=== PATIENT | male | born 1945 | race Caucasian/White ===

== ENCOUNTER 2016-12-15 21:25 | Inpatient (IN) | payer MEDICARE ==
[~2016-12-15] VITALS: Ht 167.6 cm; Wt 97.7 kg
[2016-12-15 21:27] VITALS: BP 121/73; PULSE 174; RESP 20; TEMP 98.3; O2SAT 94
[2016-12-15] MEDS ORDERED: METO10TA PO (21:35)
[2016-12-15 21:40] VITALS: BP 135/74; PULSE 88; PULSE 89; RESP 16; TEMP 98.4; O2SAT 97
[2016-12-15] MEDS ORDERED: ALPH400C2 (21:42)
[2016-12-15] MEDS ORDERED: FEXO15TA PO (21:42)
[2016-12-15] MEDS ORDERED: MELA10TA (21:42)
[2016-12-15] MEDS ORDERED: ASPI81CH CHEW (21:42)
[2016-12-15] MEDS ORDERED: GLIP10TA67 PO (21:42)
[2016-12-15] MEDS ORDERED: LANTINJ SQ (21:42)
[2016-12-15] MEDS ORDERED: MULT1CHW70 PO (21:42)
[2016-12-15] MEDS ORDERED: [UNRECOGNIZED DRUG - CODE] (21:42)
[2016-12-15] MEDS ORDERED: VITA10007 PO (21:42)
[2016-12-15] MEDS ORDERED: CALC600T25 (21:42)
[2016-12-15] MEDS ORDERED: LYRI150C PO (21:42)
[2016-12-15] MEDS ORDERED: NEXI40CA PO (21:42)
[2016-12-15] MEDS ORDERED: VITA100064 PO (21:42)
[2016-12-15] MEDS ORDERED: ATOR40TA16 PO (21:42)
[2016-12-15] MEDS ORDERED: LISI30TA4 PO (21:42)
[2016-12-15] MEDS ORDERED: SERT-132 PO (21:42)
[2016-12-15] MEDS ORDERED: METF1000 PO (21:42)
[2016-12-15] MEDS ORDERED: SODIUM CHLORIDE 0.9% FLUSH 5 ML FLUSH IVF PRN (22:00)
[2016-12-15] MEDS ORDERED: ASPIRIN 81 MG CHEW TAB PO ONE (22:00)
[2016-12-15 22:31] LABS: AUTOMATED NEUTROPHIL # 6.9 TH/MM3 (1.8-7.7); BASOPHIL # 0.1 TH/MM3 (0-0.2); BASOPHIL % 0.6 % (0.0-2.0); EOSINOPHIL # 0.1 TH/MM3 (0-0.4); EOSINOPHIL % 1.1 % (0.0-4.0); HEMATOCRIT 39.6 % (39.0-51.0); HEMO FLAGS DIFF FINAL; LYMPH % 27.4 % (9.0-44.0); MEAN CELL VOLUME 89.9 FL (80.0-100.0); MEAN CORPUSCULAR HEMOGLOBIN 29.5 PG (27.0-34.0); MEAN CORPUSCULAR HGB CONC 32.8 % (32.0-36.0); MONO % 8.6 % (0.0-8.0); NEUT % 62.3 % (16.0-70.0); PLATELET COUNT 251 TH/MM3 (150-450); RED BLOOD COUNT 4.41 MIL/MM3 (4.50-5.90); RED CELL DISTRIBUTION WIDTH 15.1 % (11.6-17.2); WHITE BLOOD COUNT 11.1 TH/MM3 (4.0-11.0)
[2016-12-15 22:47] LABS: APTT (PATIENT) 26.2 SEC (24.3-30.1); PROTHROMBIN TIME - PATIENT 11.2 SEC (9.8-11.6)
--- NOTE | 2016-12-15 22:57 | RADRPT ---
EXAM DATE/TIME: 12/15/2016 22:21 [place] COMPARISON: No previous studies available for comparison. INDICATIONS : Chest Pain MEDICAL HISTORY : Hypertension. High heart rate SURGICAL HISTORY : None. ENCOUNTER: Initial ACUITY: 1 day PAIN SCORE: 3/10 LOCATION: Bilateral chest FINDINGS: PA and lateral views of the chest demonstrate the lungs to be symmetrically aerated without evidence of mass, infiltrate or effusion. Minimal basal scarring. The cardiomediastinal contours are unremarka ble. Osseous structures are intact. CONCLUSION: 1. No acute findings. Minimal basal scarring. Ranulfo Acevedo MD on December 15, 2016 at 22:55 Board Certified Radiologist. This report was verified electronically.
[2016-12-15 23:15] LABS: ALKALINE PHOSPHATASE 57 U/L (45-117); ALT (GPT) 64 U/L (12-78); ANION GAP 12 MEQ/L (5-15); AST (GOT) 42 U/L (15-37); BICARBONATE 23.7 MEQ/L (21.0-32.0); BLOOD UREA NITROGEN 20 MG/DL (7-18); CHLORIDE 102 MEQ/L (98-107); CREATINE KINASE 226 U/L (39-308); GLOMERULAR FILTRATION RATE 54 ML/MIN (>89); MAGNESIUM 1.3 MG/DL (1.5-2.5); SODIUM (NA) 138 MEQ/L (136-145); TOTAL BILIRUBIN ADULT 0.3 MG/DL (0.2-1.0)
[2016-12-15 23:49] LABS: POTASSIUM 4.1 MEQ/L (3.5-5.1)
[2016-12-16] VITALS (11 sets, daily range): BP systolic 114–137; BP diastolic 59–85; PULSE 65–87; RESP 14–25; TEMP 98.2–98.6; O2SAT 93–99
--- NOTE | 2016-12-16 00:05 | PD ---
HPI Chief Complaint: Cardiac Complaint Time Seen by Provider: 21:40 Travel History International Travel<30 days: No Contact w/Intl Traveler<30days: No Traveled to known affect area: No History of Present Illness HPI Patient is a 71-year-old male who comes in complaining of chest pain that started around 8 PM tonight. He says they just got home from dinner and he was sitting down when he felt severe pain to the left side of his chest. He said he did have some shortness of breath at the time of the pain. He took one of his 's nitroglycerin tablets with some relief of his pain. He denies nausea or vomiting. He has not had cough, cold, fevers. He says this is never happened before. PFSH Past Medical History Hx Anticoagulant Therapy: Yes Cardiovascular Problems: Yes High Cholesterol: Yes Diabetes: Yes Patient Takes Glucophage: Yes Hypertension: Yes Inguinal Hernia: Yes Immunizations Current: Yes Past Surgical History Abdominal Surgery: Yes Other Surgery: Yes (HERNIA [facility]) Social History Alcohol Use: No Tobacco Use: No Substance Use: No Allergies-Medications (Allergen,Severity, Reaction): Coded Allergies: No Known Allergies (Unverified , 12/15/16) Reported Meds & Prescriptions Reported Meds & Active Scripts Active Reported Melissa Allergy (Fexofenadine HCl) 180 Mg Tab 180 Mg PO DAILY Calcium (Calcium Carbonate) 600 Mg Tab Glipizide XL (Glipizide) 10 Mg Carline 10 Mg PO DAILY Take with breakfast or first main meal of the day Melatonin Cr (Melatonin) 10 Mg Tab Alph-E (Vitamin E) 400 Unit Cap Vitamin D (Cholecalciferol) 1,000 Unit Tab 1,000 Units PO DAILY Vitamin C (Ascorbic Acid) 1,000 Mg Tab 1,000 Mg PO Multivitamin Adult (Multiple Vitamins W/ Minerals) 1 Chw Chw 1 Tab PO DAILY Aspirin 81 Mg Chew 81 Mg CHEW DAILY Lantus Solostar Pen Inj (Insulin Glargine) 300 Unit/3 Ml Pen 140 Units SQ Atorvastatin (Atorvastatin Calcium) 40 Mg Tab 40 Mg PO HS Lyrica (Pregabalin) 150 Mg Cap 150 Mg PO BID Sertraline (Sertraline HCl) 50 Mg Tab 50 Mg PO DAILY Metformin (Metformin HCl) 1,000 Mg Tab 1,000 Mg PO BIDPC With meals Lisinopril 30 Mg Tab 30 Mg PO DAILY Nexium (Esomeprazole DR) 40 Mg Capdr 40 Mg PO BID Metoclopramide (Metoclopramide HCl) 10 Mg Tab 10 Mg PO TIDAC Review of Systems Except as stated in HPI: all other systems reviewed are Neg General / Constitutional: No: Fever, Chills Eyes: No: Blurred Vision HENT: No: Headaches, Lightheadedness Cardiovascular: Positive: Chest Pain or Discomfort Respiratory: Positive: Shortness of Breath Gastrointestinal: No: Nausea, Vomiting Musculoskeletal: No: Myalgias, Edema Skin: No Rash, No Change in Pigmentation Neurologic: No: Weakness, Dizziness Physical Exam Narrative GENERAL: Awake and alert in no acute distress. SKIN: Warm and dry. HEAD: Atraumatic. Normocephalic. EYES: Pupils equal and round. No scleral icterus. ENT: Mucous membranes pink and moist. NECK: Trachea midline. No JVD. CARDIOVASCULAR: Regular rate and rhythm. No murmur appreciated. RESPIRATORY: No accessory muscle use. Clear to auscultation. Breath sounds equal bilaterally. GASTROINTESTINAL: Abdomen soft, non-tender, nondistended. MUSCULOSKELETAL: No obvious deformities. No clubbing. No cyanosis. No edema. NEUROLOGICAL: Awake and alert. No obvious cranial nerve deficits. Motor grossly within normal limits. Normal speech. PSYCHIATRIC: Appropriate mood and affect; insight and judgment normal. Data Data Last Documented VS Vital Signs Date Time Temp Pulse Resp B/P Pulse Ox O2 Delivery O2 Flow Rate FiO2 12/15/16 21:47 14 97 Nasal Cannula 2 12/15/16 21:40 88 12/15/16 21:40 98.4 135/74 Orders B-Type Natriuretic Peptide (12/15/16 21:57) Ckmb (Isoenzyme) Profile (12/15/16 21:57) Complete Blood Count With Diff (12/15/16 21:57) Comprehensive Metabolic Panel (12/15/16 21:57) Magnesium (Mg) (12/15/16 21:57) Prothrombin Time / Inr (Pt) (12/15/16 21:57) Act Partial Throm Time (Ptt) (12/15/16 21:57) Troponin I (12/15/16 21:57) Ecg Monitoring (12/15/16 21:57) Bilateral Bp Monitoring (12/15/16 21:57) Iv Access Insert/Monitor (12/15/16 21:57) Oximetry (12/15/16 21:57) Oxygen Administration (12/15/16 21:57) Aspirin Chew (Aspirin Chew) (12/15/16 22:00) Sodium Chloride 0.9% Flush (Ns Flush) (12/15/16 22:00) Chest, Pa & Lat (12/15/16 21:57) CKMB (12/15/16 22:10) CKMB% (12/15/16 22:10) Heparin Infusion ARIES.Q1H (12/16/16 00:04) Heparin Inj (Heparin Inj) (12/16/16 00:15) Heparin Inj (Heparin Inj) (12/16/16 06:15) Heparin Inj (Heparin Inj) (12/16/16 06:15) Heparin-D5w Inj (Heparin-D5w Inj) (12/16/16 00:15) Cbc No Diff, Includes Plts (12/19/16 06:00) Act Partial Throm Time (Ptt) (12/16/16 07:04) Occult Blood (Hemoccult) Stool (12/16/16 00:04) Admit Order (Ed Use Only) (12/16/16 ) Consult Cardiology (12/16/16 ) Labs Laboratory Tests Test 12/15/16 22:10 White Blood Count 11.1 TH/MM3 Red Blood Count 4.41 MIL/MM3 Hemoglobin 13.0 GM/DL Hematocrit 39.6 % Mean Corpuscular Volume 89.9 FL Mean Corpuscular Hemoglobin 29.5 PG Mean Corpuscular Hemoglobin 32.8 % Concent Red Cell Distribution Width 15.1 % Platelet Count 251 TH/MM3 Mean Platelet Volume 7.9 FL Neutrophils (%) (Auto) 62.3 % Lymphocytes (%) (Auto) 27.4 % Monocytes (%) (Auto) 8.6 % Eosinophils (%) (Auto) 1.1 % Basophils (%) (Auto) 0.6 % Neutrophils # (Auto) 6.9 TH/MM3 Lymphocytes # (Auto) 3.0 TH/MM3 Monocytes # (Auto) 1.0 TH/MM3 Eosinophils # (Auto) 0.1 TH/MM3 Basophils # (Auto) 0.1 TH/MM3 CBC Comment DIFF FINAL Differential Comment Prothrombin Time 11.2 SEC Prothromb Time International 1.0 RATIO Ratio Activated Partial 26.2 SEC Thromboplast Time B-Type Natriuretic Peptide 12 PG/ML Sodium Level 138 MEQ/L Potassium Level 4.1 MEQ/L Chloride Level 102 MEQ/L Carbon Dioxide Level 23.7 MEQ/L Anion Gap 12 MEQ/L Blood Urea Nitrogen 20 MG/DL Creatinine 1.32 MG/DL Estimat Glomerular Filtration 54 ML/MIN Rate Random Glucose 133 MG/DL Calcium Level 8.9 MG/DL Magnesium Level 1.3 MG/DL Total Bilirubin 0.3 MG/DL Aspartate Amino Transf 42 U/L (AST/SGOT) Alanine Aminotransferase 64 U/L (ALT/SGPT) Alkaline Phosphatase 57 U/L Total Creatine Kinase 226 U/L Creatine Kinase MB 4.9 NG/ML Troponin I 0.13 NG/ML Total Protein 7.8 GM/DL Albumin 3.9 GM/DL [facility] Medical Decision Making Medical Screen Exam Complete: Yes Emergency Medical Condition: Yes Interpretation(s) ECG shows sinus rhythm with 1 mm depression in leads 2 and 3. There is no ST elevation. Differential Diagnosis ACS versus NSTEMI versus STEMI Narrative Course Patient is a 71-year-old male comes in complaining of left-sided chest pain. Exam shows no acute abnormalities. IV established, patient connected to the hand rigger. Labs sent. Patient given aspirin. Labs show a positive troponin at 0.13. Patient started on heparin. I spoke with Dr. Nazario of cardiology who will see the patient. Patient admitted for further management. Diagnosis Primary Impression: NSTEMI (non-ST elevated myocardial infarction) Admitting Information Admitting Physician Requests: Admit Sharon Villeda MD Dec 16, 2016 00:05
[2016-12-16] MEDS ORDERED: HEPARIN SODIUM - IV 10,000 UNITS/10 ML VIAL IV ONE (00:15)
[2016-12-16 00:29] LABS: CKMB 4.9 NG/ML (0.5-3.6)
[2016-12-16] MEDS ORDERED: GLUCAGON 1 MG/ML VIAL OTHER PRN (01:15)
[2016-12-16] MEDS ORDERED: SODIUM CHLORIDE 0.9% FLUSH 5 ML FLUSH FLUSH PRN (01:15)
[2016-12-16] MEDS ORDERED: ACETAMINOPHEN 325 MG TAB PO PRN (01:15)
[2016-12-16] MEDS ORDERED: ONDANSETRON HCL 4 MG/2 ML VIAL IVP PRN (01:15)
[2016-12-16] MEDS ORDERED: MORPHINE SULFATE 4 MG/ML INJ IV PRN (01:15)
[2016-12-16] MEDS ORDERED: SODIUM CHLOR 0.9% 1000 ML INJ 1,000 ML IV ONE (01:15)
[2016-12-16] MEDS ORDERED: BISACODYL 10 MG SUPP PR PRN (01:15)
[2016-12-16] MEDS ORDERED: DEXTROSE 50% IN WATER 50 ML VIAL(D50) IV PUSH PRN (01:15)
[2016-12-16] MEDS ORDERED: PILL SPLITTER OTHER PRN (01:30)
[2016-12-16] MEDS: HEPARIN-D5W INJ 250 ML IV SCH ×2 (01:43→20:28)
[2016-12-16] MEDS ORDERED: MAGNESIUM SULFATE 1 GM PREMIX 100 ML IV ONE (01:45)
--- NOTE | 2016-12-16 02:00 | HHI.HP ---
HPI [facility] Primary Care Physician Non-Staff Admission Diagnosis NSTEMI Diagnoses: (1) NSTEMI (non-ST elevated myocardial infarction) Diagnosis: Principal (2) Renal insufficiency Diagnosis: Principal (3) Hypomagnesemia Diagnosis: Principal (4) Leukocytosis Diagnosis: Principal (5) HTN (hypertension) Diagnosis: Principal (6) DM (diabetes mellitus) Diagnosis: Principal Travel History International Travel<30 Days: No Contact w/Intl Traveler <30 Da: No Traveled to Known Affected Are: No History of Present Illness This is a 71-year-old male with a PMH of HTN, DM and Hyperlipidemia who presented to the ER w/ complaints of acute onset of substernal chest pain starting earlier this evening. Associated w/ SOB and radiation to jaw. States he uses 's NTG spray x3 w/ relief in chest pain. Denies fever or chills. On arrival, BP 121/73, HR 74, O2 sat 94% on RA, Afebrile. WBC 11.1. Creatinine 1.32, no previous labs for comparison. Mg 1.3. Trop 0.13, EKG w/ no acute changes. CXR with no acute findings. Pt currently chest pain free. Dr. Nazario consulted by ER physician, recommended Heparin gtt and will see in am. Review of Systems Except as stated in HPI: all other systems reviewed are Neg ROS: 14 point review of systems otherwise negative. Past Family Social History Past Medical History PMH: HTN, DM and Hyperlipidemia Past Surgical History PAST SURGICAL HISTORY: Hernia Repair, Bilateral Knee Replacement Allergies: Coded Allergies: No Known Allergies (Unverified , 12/15/16) Family History PAST FAMILY HISTORY: Reviewed, positive for DM. Social History PAST SOCIAL HISTORY: Negative for alcohol, tobacco or drugs. Physical Exam Vital Signs Vital Signs Date Time Temp Pulse Resp B/P Pulse Ox O2 Delivery O2 Flow Rate FiO2 12/15/16 21:47 14 97 Nasal Cannula 2 12/15/16 21:40 88 16 97 Nasal Cannula 2 12/15/16 21:40 97 Nasal Cannula 2 12/15/16 21:40 98.4 89 16 135/74 97 12/15/16 21:27 98.3 174 20 121/73 94 Room Air Physical Exam PE: GENERAL: Very pleasant middle-aged white male in no acute distress. HEENT: PERRLA, EOMI. No scleral icterus or conjunctival pallor. No lid lag or facial droop. CARDIOVASCULAR: Regular rate and rhythm. No obvious murmurs to auscultation. No chest tenderness to palpation. RESPIRATORY: No obvious rhonchi or wheezing. Clear to auscultation. Breath sounds equal bilaterally. GASTROINTESTINAL: Abdomen soft, non-tender, nondistended. BS normal. MUSCULOSKELETAL: Extremities without clubbing, cyanosis, or edema. No obvious deformities. NEUROLOGICAL: Awake, alert and oriented x4. No focal neurologic deficits. Moving both upper and lower extremities spontaneously. Laboratory Laboratory Tests Test 12/15/16 22:10 White Blood Count 11.1 Red Blood Count 4.41 Hemoglobin 13.0 Hematocrit 39.6 Mean Corpuscular Volume 89.9 Mean Corpuscular Hemoglobin 29.5 Mean Corpuscular Hemoglobin 32.8 Concent Red Cell Distribution Width 15.1 Platelet Count 251 Mean Platelet Volume 7.9 Neutrophils (%) (Auto) 62.3 Lymphocytes (%) (Auto) 27.4 Monocytes (%) (Auto) 8.6 Eosinophils (%) (Auto) 1.1 Basophils (%) (Auto) 0.6 Neutrophils # (Auto) 6.9 Lymphocytes # (Auto) 3.0 Monocytes # (Auto) 1.0 Eosinophils # (Auto) 0.1 Basophils # (Auto) 0.1 CBC Comment DIFF FINAL Differential Comment Prothrombin Time 11.2 Prothromb Time International 1.0 Ratio Activated Partial 26.2 Thromboplast Time B-Type Natriuretic Peptide 12 Sodium Level 138 Potassium Level 4.1 Chloride Level 102 Carbon Dioxide Level 23.7 Anion Gap 12 Blood Urea Nitrogen 20 Creatinine 1.32 Estimat Glomerular Filtration 54 Rate Random Glucose 133 Calcium Level 8.9 Magnesium Level 1.3 Total Bilirubin 0.3 Aspartate Amino Transf 42 (AST/SGOT) Alanine Aminotransferase 64 (ALT/SGPT) Alkaline Phosphatase 57 Total Creatine Kinase 226 Creatine Kinase MB 4.9 Troponin I 0.13 Total Protein 7.8 Albumin 3.9 Result Diagram: 12/15/16220912/15/162209 Assessment and Plan Problem List: (1) NSTEMI (non-ST elevated myocardial infarction) ICD Code: I21.4 Status: Acute (2) Renal insufficiency ICD Code: N28.9 Status: Acute (3) Hypomagnesemia ICD Code: E83.42 Status: Acute (4) Leukocytosis ICD Code: D72.829 Status: Acute (5) HTN (hypertension) ICD Code: I10 Status: Acute (6) DM (diabetes mellitus) ICD Code: E11.9 Status: Acute Assessment and Plan A/P: 1. NSTEMI: Acute onset of chest pain earlier tonight, s/p NTG spray x3 w/ relief. Initial trop 0.13, EKG w/ no acute changes. CXR negative, images reviewed by me. Dr. Nazario consulted by ER physician, recommended Heparin gtt and will eval in am. Continue Heparin, ASA, Metoprolol, Statin. Check serial enzymes, Lipid Profile, Hgb A1c, TSH. 2. Renal Insufficiency: Creatinine 1.32, no previous labs for comparison. BUN 20. Check U/a, IVF, repeat labs in am. Hold Lisinopril and Metformin. 3. Hypomagnesemia: Mg 1.3, will replace and recheck in am. 4. Leukocytosis: WBC 11, afebrile. Unlikely infectious etiology. CXR negative, check U/a to eval for possible UTI. Repeat labs in am. 5. HTN: Controlled. Hold Lisinopril in light of renal insufficiency. 6. DM: Sliding scale w/ Accu-Cheks. Check Hgb A1c. Hold Metformin for renal insufficiency and possible cardiac intervention. 7. DVT Prophylaxis: Heparin gtt 8. Social work for d/c planning as needed. 9. Case discussed w/ ER physician at length. Physician Certification 2 Midnight Certification Type: Admission for Inpatient Services Order for Inpatient Services The services are ordered in accordance with Medicare regulations or non- Medicare payer requirements, as applicable. In the case of services not specified as inpatient-only, they are appropriately provided as inpatient services in accordance with the 2-midnight benchmark. Estimated LOS (days): 2 days is the estimated time the patient will need to remain in the hospital, assuming treatment plan goals are met and no additional complications. Post-Hospital Plan: Not yet determined Arlyn Miller MD Dec 16, 2016 02:00
[2016-12-16 03:12] LABS: BLOOD, URINE NEG (NEG); COMMENT (UR) CULT NOT INDICATED; CULTURE IF INDICATED CULT NOT INDICATED; GLUCOSE,URINE NEG (NEG); KETONE, URINE NEG (NEG); MUCUS URINE FEW /lpf (OCC); NITRITE,URINE NEG (NEG); PH, URINE 5.5 (5.0-8.5); URINE COLOR YELLOW (YELLW/STRAW)
[2016-12-16 04:53] LABS: HDL CHOLESTEROL 41.9 MG/DL (40.0-60.0); LDL CHOLESTEROL 38 MG/DL (0-99)
[2016-12-16 06:09] LABS: APTT (PATIENT) 31.8 SEC (24.3-30.1)
[2016-12-16] MEDS ORDERED: HEPARIN SODIUM - IV 10,000 UNITS/10 ML VIAL IV PRN ×2 (06:15)
[2016-12-16] MEDS: INSULIN ASPART SUPPLEMENTAL SCALE SQ SCH ×4 (07:00→20:32)
[2016-12-16] MEDS: ASPIRIN 81 MG CHEW TAB CHEW SCH (08:26)
[2016-12-16] MEDS: MULTIVITAMINS/MINERALS THERAPEUTIC TAB PO SCH (08:26)
[2016-12-16] MEDS: SERTRALINE HCL 50 MG TAB PO SCH (08:27)
[2016-12-16] MEDS: PREGABALIN 75 MG CAP PO SCH ×2 (08:27→20:27)
[2016-12-16] MEDS: METOPROLOL TARTRATE 25 MG TAB PO SCH ×2 (08:27→20:27)
[2016-12-16] MEDS: SODIUM CHLORIDE 0.9% FLUSH 5 ML FLUSH FLUSH SCH ×2 (08:28→20:29)
[2016-12-16 09:06] LABS: HEMOGLOBIN A1a 1.1 %; HEMOGLOBIN A1b 1.2 %; HEMOGLOBIN F 1.2 %; HEMOGLOBIN LA1C 2.5 %; HEMOGLOBIN P3 4.4 %
[2016-12-16] MEDS ORDERED: CHLORHEXIDINE GLUCONATE 2 % 1 PACK (2 CLOTHS)(extra cloths) TOP PRN (09:30)
[2016-12-16 10:43] LABS: AUTOMATED NEUTROPHIL # 5.1 TH/MM3 (1.8-7.7); BASOPHIL % 0.4 % (0.0-2.0); EOSINOPHIL # 0.1 TH/MM3 (0-0.4); EOSINOPHIL % 1.5 % (0.0-4.0); HEMO FLAGS DIFF FINAL; LYMPH % 25.7 % (9.0-44.0); LYMPHOCYTE # 2.1 TH/MM3 (1.0-4.8); MEAN CELL VOLUME 88.6 FL (80.0-100.0); MEAN CORPUSCULAR HEMOGLOBIN 29.9 PG (27.0-34.0); MEAN CORPUSCULAR HGB CONC 33.8 % (32.0-36.0); MONO % 9.4 % (0.0-8.0); PLATELET COUNT 217 TH/MM3 (150-450); RED BLOOD COUNT 4.06 MIL/MM3 (4.50-5.90); RED CELL DISTRIBUTION WIDTH 14.9 % (11.6-17.2); WHITE BLOOD COUNT 8.2 TH/MM3 (4.0-11.0)
[2016-12-16 11:00] LABS: ALT (GPT) 59 U/L (12-78); ANION GAP 8 MEQ/L (5-15); AST (GOT) 58 U/L (15-37); BLOOD UREA NITROGEN 20 MG/DL (7-18); CHLORIDE 105 MEQ/L (98-107); GLOMERULAR FILTRATION RATE 66 ML/MIN (>89); MAGNESIUM 1.8 MG/DL (1.5-2.5); POTASSIUM 4.2 MEQ/L (3.5-5.1); SODIUM (NA) 137 MEQ/L (136-145)
[2016-12-16 11:04] LABS: ALKALINE PHOSPHATASE 49 U/L (45-117); TOTAL BILIRUBIN ADULT 0.3 MG/DL (0.2-1.0)
--- NOTE | 2016-12-16 11:05 | MB ---
cc: REGINO URIAS DATE OF CONSULTATION: 12/16/2016 DATE OF : 1945 REASON FOR CONSULTATION [id number] MT. HISTORY OF PRESENT ILLNESS 71-year-old male with cardiac risk factors that include hypertension, hyperlipidemia, diabetes and obesity who presents to the emergency department with complaints of jaw pain and chest pressure that started at 7 p.m. yesterday which was relieved by nitroglycerin. He reports being in his usual state of health until yesterday at 7 p.m. when he started having headache, chest pressure across his chest. He took his 's nitroglycerin with some relief of the pressure, however, it did not go away for which he presented to the emergency department. In the emergency department EKG had no acute ST changes. First set of troponin was 0.13, and he was admitted to the ICU for further management and evaluation. This morning the patient reports that he is chest pain free, however, the second set of troponins came up to 6.46. He has been started on heparin drip, aspirin, Lipitor, and metoprolol. He denies palpitation, headache, major bleeding issues, abdominal pain, nausea, vomiting, diarrhea, constipation, weight loss, syncope, PND, orthopnea. Cardiology has been consulted for NSTEMI management. Of note, the patient has a recent history of bilateral optic nerve hemorrhage. He has been followed by ophthalmology and has a pending workup. REVIEW OF SYSTEMS: The review of systems is negative except for what is mentioned in the HPI. PAST MEDICAL HISTORY 1. Hypertension. 2. Diabetes. 3. Hyperlipidemia. 4. Optic nerve hemorrhage. PAST SURGICAL HISTORY: Hernia repair, bilateral knee replacement. ALLERGIES NO KNOWN DRUG ALLERGIES. FAMILY HISTORY Extensive history of coronary artery disease. SOCIAL HISTORY He denies alcohol, tobacco or illicit drug use. PHYSICAL EXAMINATION Vital signs: Temperature of 98.4, heart rate of 82, respiratory rate 14, blood pressure 137/85, O2 sat 96% on two liters nasal cannula. General: He is awake, alert, oriented x3 in no acute distress. Neck: No JVD appreciated given the obesity. No carotid bruits. Heart: Regular rate and rhythm. No murmurs, rubs or gallops. Lungs: Clear to auscultation bilaterally. Abdomen: Obese. Positive bowel sounds, soft, nontender, nondistended. Extremities: No cyanosis or edema. Pulses throughout. DATA CBC: hemoglobin 13, hematocrit 39, platelet count 251, INR 1.0. Chemistries: sodium 138, potassium 4.1, BUN 20, creatinine 1.3, troponin 0.13 and 6.46. BNP 12, triglycerides 101, cholesterol 100, LDL 38, HDL 41, TSH 6.2. Chest x-ray: No acute cardiopulmonary process. EKG: sinus rhythm with incomplete right bundle branch block and nonspecific ST changes. CARDIAC MEDICATIONS AT HOME: Reviewed. ASSESSMENT/PLAN A 71-year-old male with a cardiac risk factors of hypertension, obesity, hyperlipidemia, diabetes presented to the hospital with a [id number] MT. He remains febrile and hemodynamically stable, chest pain free. He has been started on IV anticoagulation as well as on beta-blockers, statins, aspirin and JUNO inhibitors. I think it would be reasonable to recommend the patient for left heart cath/PCI, for an early invasive study. The risks and benefits of left heart catheterization, intervention, including but not limited to bleeding , renal failure, stroke, emergent bypass surgery, neurovascular trauma and have been explained to the patient and he is willing to proceed. In the event that the patient needs a stent, we have explained to him that he will need to be compliant with dual antiplatelet agent, aspirin and P2Y12 inhibitor for at least a year to prevent stent thrombosis. Will get ophthalmology consult for their opinion regarding the optic nerve hemorrhage and clearance for C. Thank you for the opportunity to take part in the care of this patient. Will follow with you. MD CHAPITO Bashir/BELINDA /10:16 AM /10:49 AM PATTIE
--- NOTE | 2016-12-16 13:07 | HHI.PR ---
Subjective Remarks Follow-up for non-ST elevated myocardial infarction Denies any further chest pain, no palpitations. Denies any shortness of breath or bleeding. Per patient, history of optic nerve hemorrhage in October. Objective Vitals Vital Signs Date Time Temp Pulse Resp B/P Pulse Ox O2 Delivery O2 Flow Rate FiO2 12/16/16 10:00 67 12/16/16 09:27 16 12/16/16 08:00 77 12/16/16 08:00 98.4 77 20 137/85 98 12/16/16 02:42 82 14 114/71 96 Nasal Cannula 2 12/15/16 21:47 14 97 Nasal Cannula 2 12/15/16 21:40 88 16 97 Nasal Cannula 2 12/15/16 21:40 97 Nasal Cannula 2 12/15/16 21:40 98.4 89 16 135/74 97 12/15/16 21:27 98.3 174 20 121/73 94 Room Air Result Diagram: 12/16/16 1010 12/16/16 1010 Objective Remarks GENERAL: Very pleasant middle-aged white male in no acute distress. HEENT: PERRLA, EOMI. No scleral icterus or conjunctival pallor. No lid lag or facial droop. CARDIOVASCULAR: Regular rate and rhythm. No obvious murmurs to auscultation. No chest tenderness to palpation. RESPIRATORY: No obvious rhonchi or wheezing. Clear to auscultation. Breath sounds equal bilaterally. GASTROINTESTINAL: Abdomen soft, non-tender, nondistended. BS normal. MUSCULOSKELETAL: Extremities without clubbing, cyanosis, or edema. No obvious deformities. NEUROLOGICAL: Awake, alert and oriented x4. No focal neurologic deficits. Moving both upper and lower extremities spontaneously. A/P Problem List: (1) NSTEMI (non-ST elevated myocardial infarction) ICD Code: I21.4 Status: Acute (2) Renal insufficiency ICD Code: N28.9 Status: Acute (3) Hypomagnesemia ICD Code: E83.42 Status: Acute (4) Leukocytosis ICD Code: D72.829 Status: Acute (5) HTN (hypertension) ICD Code: I10 Status: Acute (6) DM (diabetes mellitus) ICD Code: E11.9 Status: Acute Assessment and Plan This is a 71-year-old male presenting with chest pain NSTEMI: Acute onset of chest pain, EKG changes, troponin max at 7. CXR negative, images reviewed by me. Cardiology following, continue heparin drip. Continue aspirin, metoprolol and statin. Ophthalmology consulted for history of optic nerve hemorrhage, and patient needing heart catheterization with anticoagulation likely tomorrow after cleared by ophthalmology.. Borderline diabetes-hemoglobin A1c 6.2, monitor. Metformin hold, sliding scale insulin for now Acute renal insufficiency-resolved with IVF, continue to hold lisinopril and metformin. Hypertension-currently controlled, hold lisinopril. Continue metoprolol. Leukocytosis-likely stress-induced, chest x-ray personally reviewed unremarkable. Urinalysis negative. Leukocytosis resolved. Hypothyroidism-TSH 6.2, check free T3 and free T4. DVT prophylaxis: Continue heparin drip. Sahra Klein MD Dec 16, 2016 13:07
--- NOTE | 2016-12-16 13:10 | EKG ---
Date Performed: 12/15/2016 Time Performed: 21:36:47 PTAGE: 71 years EKG: Sinus rhythm LOW QRS VOLTAGE IN PRECORDIAL LEADS INCOMPLETE RIGHT BUNDLE BRANCH BLOCK MODERATE ST DEPRESSION ABNO RMAL ECG NO PREVIOUS TRACING DOCTOR: Georgi Nazario Interpretating Date/Time 12/16/2016 13:08:23
--- NOTE | 2016-12-16 13:10 | EKG ---
Date Performed: 12/16/2016 Time Performed: 05:29:28 PTAGE: 71 years EKG: Sinus rhythm INCOMPLETE RIGHT BUNDLE BRANCH BLOCK MINIMAL ST DEPRESSION Compared to previous tracing, ST changes are slightly less prominent, though would still consider ischemia BORDERLINE ECG PREVIOUS TRACING : 12/15/2016 21.36 DOCTOR: Georgi Nazario Interpretating Date/Time 12/16/2016 13:08:55
[2016-12-16 20:24] LABS: APTT (PATIENT) 31.2 SEC (24.3-30.1)
[2016-12-16] MEDS: ATORVASTATIN 40 MG TAB PO SCH (20:27)
[2016-12-16] MEDS: ACETAMINOPHEN/HYDROcodone 325 MG/5 MG TAB PO PRN (20:28)
[2016-12-17] VITALS (14 sets, daily range): BP systolic 131–142; BP diastolic 65–79; PULSE 62–90; RESP 14–27; TEMP 98.1–99; O2SAT 94–100
[2016-12-17] MEDS: CHLORHEXIDINE GLUCONATE 2 % 1 PACK (2 CLOTHS)(taper/protocol) TOP SCH (04:00)
[2016-12-17 04:02] LABS: APTT (PATIENT) 37.2 SEC (24.3-30.1)
[2016-12-17] MEDS: INSULIN ASPART SUPPLEMENTAL SCALE SQ SCH ×4 (06:36→22:10)
--- NOTE | 2016-12-17 09:07 | PD.CARD.PN ---
Subjective Subjective Remarks no complaints no overnight events awaiting Ophthalmology Follow up Objective Medications Current Medications Medications (Trade) Dose Ordered Sig/Katina Route Start Time Stop Time Status Last Admin (Heparin Inj) 5,000 units UNSCH PRN IV 12/16/16 06:15 Heparin Sodium (Porcine) 2500 units 2,500 units UNSCH PRN IV 12/16/16 06:15 (Heparin-D5W Inj) 250 ml @ 0 mls/hr TITRATE IV 12/16/16 00:15 12/16/16 20:28 (D50w (Vial) Inj) 25 ml UNSCH PRN IV PUSH 12/16/16 01:15 (Glucagon Inj) 1 mg UNSCH PRN OTHER 12/16/16 01:15 (NS Flush) 2 ml UNSCH PRN FLUSH 12/16/16 01:15 (NS Flush) 2 ml BID FLUSH 12/16/16 09:00 12/16/16 20:29 (Zofran Inj) 4 mg Q6H PRN IVP 12/16/16 01:15 (Dulcolax Supp) 10 mg DAILY PRN LA 12/16/16 01:15 (Tylenol) 650 mg Q6H PRN PO 12/16/16 01:15 ([place] 5-325 Mg) 1 tab Q4H PRN PO 12/16/16 01:15 12/16/16 20:28 (Morphine Inj) 2 mg Q3H PRN IV 12/16/16 01:15 (Lopressor) 12.5 mg Q12HR PO 12/16/16 09:00 12/16/16 20:27 (Aspirin Chew) 81 mg DAILY CHEW 12/16/16 09:00 12/16/16 08:26 (Lipitor) 40 mg HS PO 12/16/16 21:00 12/16/16 20:27 (Lyrica) 150 mg BID PO 12/16/16 09:00 12/16/16 20:27 (Zoloft) 50 mg DAILY PO 12/16/16 09:00 12/16/16 08:27 (Theragran M Tab) 1 tab DAILY PO 12/16/16 09:00 12/16/16 08:26 (Pill Splitter) 1 ea UNSCH PRN OTHER 12/16/16 01:30 Miscellaneous Information Patient in critical care unit? Ass... Q361D XX 12/16/16 09:30 12/16/16 09:30 (Chlorhexidine 2% Cloth) 3 pack DAILY@04 TOP 12/17/16 04:00 12/21/16 04:01 12/17/16 04:00 (Chlorhexidine 2% Cloth) 3 pack UNSCH PRN TOP 12/16/16 09:30 12/21/16 09:18 Vital Signs / I&O Vital Signs Date Time Temp Pulse Resp B/P Pulse Ox O2 Delivery O2 Flow Rate FiO2 12/17/16 08:49 96 12/17/16 06:00 65 12/17/16 04:00 65 12/17/16 04:00 98.5 65 14 139/65 94 12/17/16 02:00 63 12/17/16 00:00 62 12/17/16 00:00 98.4 62 17 135/72 96 12/16/16 22:00 65 12/16/16 20:00 98.2 74 25 123/76 93 12/16/16 20:00 74 12/16/16 19:10 93 21 12/16/16 18:00 74 12/16/16 16:00 87 12/16/16 16:00 98.2 87 16 128/59 95 12/16/16 14:00 70 12/16/16 12:00 98.6 69 18 128/70 98 12/16/16 12:00 69 12/16/16 10:00 67 12/16/16 09:27 16 I/O 12/16/16 12/16/16 12/16/16 12/17/16 12/17/16 12/17/16 07:00 15:00 23:00 07:00 15:00 23:00 Intake Total 1841 ml 1012 ml 793 ml Output Total 1200 ml 1700 ml 600 ml Balance 641 ml -688 ml 193 ml Intake Oral 500 ml 240 ml 0 ml IV Total 1341 ml 772 ml 793 ml Output Urine Total 1200 ml 1700 ml 600 ml # Bowel Movements 0 0 Physical Exam GENERAL: Well-nourished, well-developed patient. SKIN: Warm and dry. HEAD: Normocephalic. EYES: No scleral icterus. No injection or drainage. NECK: Supple, trachea midline. No JVD or lymphadenopathy. CARDIOVASCULAR: Regular rate and rhythm without murmurs, gallops, or rubs. RESPIRATORY: Breath sounds equal bilaterally. No accessory muscle use. GASTROINTESTINAL: Abdomen soft, non-tender, nondistended. EXTREMITIES: No cyanosis, or edema. NEUROLOGICAL: Awake, alert, and oriented x 3. Non-focal. Laboratory Laboratory Tests Test 12/16/16 12/16/16 12/16/16 12/17/16 10:10 11:29 19:57 03:08 White Blood Count 8.2 TH/MM3 Red Blood Count 4.06 MIL/MM3 Hemoglobin 12.2 GM/DL Hematocrit 36.0 % Mean Corpuscular Volume 88.6 FL Mean Corpuscular Hemoglobin 29.9 PG Mean Corpuscular Hemoglobin 33.8 % Concent Red Cell Distribution Width 14.9 % Platelet Count 217 TH/MM3 Mean Platelet Volume 7.4 FL Neutrophils (%) (Auto) 63.0 % Lymphocytes (%) (Auto) 25.7 % Monocytes (%) (Auto) 9.4 % Eosinophils (%) (Auto) 1.5 % Basophils (%) (Auto) 0.4 % Neutrophils # (Auto) 5.1 TH/MM3 Lymphocytes # (Auto) 2.1 TH/MM3 Monocytes # (Auto) 0.8 TH/MM3 Eosinophils # (Auto) 0.1 TH/MM3 Basophils # (Auto) 0.0 TH/MM3 CBC Comment DIFF FINAL Differential Comment Sodium Level 137 MEQ/L Potassium Level 4.2 MEQ/L Chloride Level 105 MEQ/L Carbon Dioxide Level 24.0 MEQ/L Anion Gap 8 MEQ/L Blood Urea Nitrogen 20 MG/DL Creatinine 1.10 MG/DL Estimat Glomerular Filtration 66 ML/MIN Rate Random Glucose 145 MG/DL Calcium Level 8.7 MG/DL Magnesium Level 1.8 MG/DL Total Bilirubin 0.3 MG/DL Aspartate Amino Transf 58 U/L (AST/SGOT) Alanine Aminotransferase 59 U/L (ALT/SGPT) Alkaline Phosphatase 49 U/L Troponin I 7.37 NG/ML Total Protein 6.9 GM/DL Albumin 3.7 GM/DL Activated Partial 32.0 SEC 31.2 SEC 37.2 SEC Thromboplast Time Assessment and Plan Problem List: (1) NSTEMI (non-ST elevated myocardial infarction) Assessment and Plan: Awaiting Ophthalmology clearance for LHC +/- PCI Continue aggressive medical therapy Keep NPO Risk benefits of LHC +/- PCI including but not limited to neuro vascular trauma , kidney failure, bleeding, [place], emergent CABG, dissection, Stroke and has been explained to the patient and he is willing to proceed. (2) Optic nerve hemorrhage (3) DM (diabetes mellitus) (4) HTN (hypertension) Problem Qualifiers (1) Optic nerve hemorrhage: Qualified Code: H47.023 - Optic nerve hemorrhage, bilateral (2) DM (diabetes mellitus): (3) HTN (hypertension): Qualified Code: I10 - Essential hypertension Jose Gale MD Dec 17, 2016 09:07
[2016-12-17] MEDS: METOPROLOL TARTRATE 25 MG TAB PO SCH ×2 (09:14→20:27)
[2016-12-17] MEDS: PREGABALIN 75 MG CAP PO SCH ×2 (09:14→20:21)
[2016-12-17] MEDS: SODIUM CHLORIDE 0.9% FLUSH 5 ML FLUSH FLUSH SCH (09:15)
[2016-12-17] MEDS: ASPIRIN 81 MG CHEW TAB CHEW SCH (09:15)
[2016-12-17] MEDS: MULTIVITAMINS/MINERALS THERAPEUTIC TAB PO SCH (09:15)
[2016-12-17] MEDS: SERTRALINE HCL 50 MG TAB PO SCH (09:15)
[2016-12-17 10:43] LABS: APTT (PATIENT) 39.5 SEC (24.3-30.1)
--- NOTE | 2016-12-17 12:37 | PD.CONS ---
History of Present Illness Service Ophthalmology Consult Requested By Cardiology Reason for Consult history of optic nerve hemorrhage Primary Care Physician Non-Staff Diagnoses: History of Present Illness 71 yo M with history of DM, HTN, high cholesterol, presenting with CT. 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 Pt states he had recent optic nerve hemorrhages causing loss of vision. Dr. Geoff Foster ([facility]) is treating pt. Notes were obtained from his office - it states he has ischemic optic neuropathy OD>OS. He was treated with an injection of Kenalog and Avastin in the left eye last month. No new changes in his vision. Past Family Social History Allergies: Coded Allergies: No Known Allergies (Unverified , 12/15/16) Physical Exam Vital Signs Vital Signs Date Time Temp Pulse Resp B/P Pulse Ox O2 Delivery O2 Flow Rate FiO2 12/17/16 08:49 96 12/17/16 06:00 65 12/17/16 04:00 65 12/17/16 04:00 98.5 65 14 139/65 94 12/17/16 02:00 63 12/17/16 00:00 62 12/17/16 00:00 98.4 62 17 135/72 96 12/16/16 22:00 65 12/16/16 20:00 98.2 74 25 123/76 93 12/16/16 20:00 74 12/16/16 19:10 93 21 12/16/16 18:00 74 12/16/16 16:00 87 12/16/16 16:00 98.2 87 16 128/59 95 12/16/16 14:00 70 Physical Exam Va sc at near OD 20/800, OS 20/200 EOM full OU, no diplopia CVF limited OU Pupils 2-1, APD OD IOP normal to palpation OU Anterior exam OD - normal eyelid, C/S W&Q, K clear, AC deep, pupil round, PCIOL OS - normal eyelid, C/S W&Q, K clear, AC deep, pupil round, PCIOL Dilated exam OD - ON pallor, ves normal, vit clear, retina flat OS - ON diffuse edema with splinter hemorrhages, ves normal, vit clear, retina flat Laboratory Laboratory Tests Test 12/16/16 12/17/16 12/17/16 19:57 03:08 09:56 Activated Partial 31.2 37.2 39.5 Thromboplast Time Result Diagram: 12/16/16 1010 12/16/16 1010 Assessment and Plan Problem List: (1) Ischemic optic neuropathy, bilateral Status: Acute Plan: No symptoms of GCA. Would normally order ESR, CRP to rule out GCA, but these will be elevated regardless due to his recent CT. Non-arteritic ischemic optic neuropathy is caused by vascular risk factors - control underlying factors (HTN, DM, chol). Recommend carotid doppler once patient is stable to rule out embolic source. No contraindications for cath. Verito Solorzano MD Dec 17, 2016 12:37
[2016-12-17] MEDS: HEPARIN-D5W INJ 250 ML IV SCH (14:31)
--- NOTE | 2016-12-17 15:54 | HHI.PR ---
Subjective Remarks Follow-up for chest pain No chest pain overnight, not short of breath. No Changes in vision. Objective Vitals Vital Signs Date Time Temp Pulse Resp B/P Pulse Ox O2 Delivery O2 Flow Rate FiO2 12/17/16 12:00 68 12/17/16 10:00 69 12/17/16 08:49 96 12/17/16 08:00 99.0 68 20 142/73 95 12/17/16 08:00 68 12/17/16 06:00 65 12/17/16 04:00 65 12/17/16 04:00 98.5 65 14 139/65 94 12/17/16 02:00 63 12/17/16 00:00 62 12/17/16 00:00 98.4 62 17 135/72 96 12/16/16 22:00 65 12/16/16 20:00 98.2 74 25 123/76 93 12/16/16 20:00 74 12/16/16 19:10 93 21 12/16/16 18:00 74 12/16/16 16:00 87 12/16/16 16:00 98.2 87 16 128/59 95 I/O 12/16/16 12/16/16 12/16/16 12/17/16 12/17/16 12/17/16 07:00 15:00 23:00 07:00 15:00 23:00 Intake Total 1841 ml 1012 ml 793 ml Output Total 1200 ml 1700 ml 600 ml Balance 641 ml -688 ml 193 ml Intake Oral 500 ml 240 ml 0 ml IV Total 1341 ml 772 ml 793 ml Output Urine Total 1200 ml 1700 ml 600 ml # Bowel Movements 0 0 Result Diagram: 12/16/16 1010 12/16/16 1010 Objective Remarks GENERAL: Very pleasant middle-aged white male in no acute distress. HEENT: PERRLA, EOMI. No scleral icterus or conjunctival pallor. No lid lag or facial droop. CARDIOVASCULAR: Regular rate and rhythm. No obvious murmurs to auscultation. No chest tenderness to palpation. RESPIRATORY: No obvious rhonchi or wheezing. Clear to auscultation. Breath sounds equal bilaterally. GASTROINTESTINAL: Abdomen soft, non-tender, nondistended. BS normal. MUSCULOSKELETAL: Extremities without clubbing, cyanosis, or edema. No obvious deformities. NEUROLOGICAL: Awake, alert and oriented x4. No focal neurologic deficits. Moving both upper and lower extremities spontaneously. A/P Problem List: (1) NSTEMI (non-ST elevated myocardial infarction) ICD Code: I21.4 Status: Acute (2) Renal insufficiency ICD Code: N28.9 Status: Acute (3) Hypomagnesemia ICD Code: E83.42 Status: Acute (4) Leukocytosis ICD Code: D72.829 Status: Acute (5) HTN (hypertension) ICD Code: I10 Status: Acute (6) DM (diabetes mellitus) ICD Code: E11.9 Status: Acute Assessment and Plan This is a 71-year-old male presenting with chest pain NSTEMI: Acute onset of chest pain, EKG changes, troponin max at 7. CXR negative, images reviewed by me. Cardiology following, continue heparin drip. Continue aspirin, metoprolol and statin. Ophthalmology consulted for history of optic nerve hemorrhage, cleared by ophthalmology, for heart catheterization Borderline diabetes-hemoglobin A1c 6.2, monitor. Metformin hold, sliding scale insulin for now Acute renal insufficiency-resolved with IVF, continue to hold lisinopril and metformin. Hypertension-currently controlled, hold lisinopril. Continue metoprolol. Leukocytosis-likely stress-induced, chest x-ray personally reviewed unremarkable. Urinalysis negative. Leukocytosis resolved. Hypothyroidism-TSH 6.2, check free T3 and free T4. DVT prophylaxis: Continue heparin drip. Transfer to CICU Problem Qualifiers (1) HTN (hypertension): Qualified Code: I10 - Essential hypertension (2) DM (diabetes mellitus): Sahra Klein MD Dec 17, 2016 15:54
[2016-12-17] MEDS ORDERED: IOHEXOL 350 MG/ML 100 ML BTL (for Cath Lab) OTHER ONE (16:11)
[2016-12-17] MEDS ORDERED: IOHEXOL 350 MG/ML 50 ML BTL (for Cath Lab) OTHER ONE (16:11)
[2016-12-17] MEDS ORDERED: HEPARIN-NS/PF INJ 500 ML ONE (16:22)
[2016-12-17] MEDS ORDERED: MIDAZOLAM HCL 2 MG/2 ML VIAL ONE (16:23)
[2016-12-17] MEDS ORDERED: NITROGLYCERIN INJ 5 ML ONE (16:23)
[2016-12-17] MEDS ORDERED: VERAPAMIL HCL 5 MG/2 ML VIAL ONE (16:23)
[2016-12-17] MEDS ORDERED: HEPARIN SODIUM - IV 10,000 UNITS/10 ML VIAL ONE (16:23)
[2016-12-17] MEDS ORDERED: MISC INFORMATION XX ONE (17:15)
[2016-12-17] MEDS ORDERED: SODIUM CHLORIDE 0.9% FLUSH 5 ML FLUSH IVF PRN (17:15)
[2016-12-17] MEDS ORDERED: ceFAZolin 2 GM PREMIX 50 ML IV SCH (17:45)
[2016-12-17] MEDS ORDERED: CEFAZOLIN INJ 500 MG in SODIUM CHLORIDE 0.9% IRR BTL 500 ML IRRIGATION SCH (17:45)
[2016-12-17] MEDS ORDERED: CHLORHEXIDINE GLUCONATE 4% SOLN 120 ML BTL TOPICAL SCH (17:45)
[2016-12-17] MEDS ORDERED: PAPAVERINE INJ 60 MG, NITROGLYCERIN INJ 100 MCG, DILTIAZEM INJ 100 MG in SODIUM CHLORID... IRRIGATION SCH (17:45)
[2016-12-17] MEDS ORDERED: INSULIN REGULAR (IV INFUSION) 100 UNITS in SODIUM CHLORIDE 0.9% INJ 100 ML IV SCH (17:45)
[2016-12-17] MEDS ORDERED: SODIUM CHLORIDE 0.9% FLUSH 5 ML FLUSH IV FLUSH PRN (17:45)
[2016-12-17] MEDS ORDERED: METOPROLOL TARTRATE 25 MG TAB PO SCH (17:45)
[2016-12-17] MEDS ORDERED: HEPARIN-D5W INJ 250 ML IV SCH (19:30)
[2016-12-17] MEDS ORDERED: HEPARIN SODIUM - IV 10,000 UNITS/10 ML VIAL IV PRN ×2 (19:30)
--- NOTE | 2016-12-17 19:46 | MA ---
cc: REGINO URIAS DATE: 12/17/2016 Cc: DATE OF 1945 PROCEDURE PERFORMED Left heart catheterization, Selective right and left coronary angiography, Left ventriculography. INDICATIONS [id number] IN. DESCRIPTION OF PROCEDURE The consent signed. The patient was brought into the cardiac dental laboratory technician apprentice in a fasting state. The right wrist was prepped and draped in sterile fashion. Using 1% lidocaine for local anesthesia and a micropuncture kit a 6-German sheath was inserted into the right radial artery. Antispasmodic cocktail given. Then selective right and left coronary angiography was performed with a [id number] diagnostic catheter. Angiography was taken in multiple views. Then a 5- German angled pig tail over a wire was introduced to the left ventricle followed by hemodynamics, ventricle ventriculography and then pullback. The patient tolerated the procedure well without complications. ESTIMATED BLOOD LOSS Less than 30 mL total. TOTAL CONTRAST Total contrast used 120 cc. The right radial access site was closed with a TR band. ANGIOGRAPHIC RESULTS LEFT VENTRICLE The left ventricular pressure was 139/13 with an LVEDP of 18. The aortic pressure was 140/50 with a mean of 97. The left ventriculography revealed a symmetrically rose ventricle with an estimated ejection fraction of 60%. ANGIOGRAPHY 1. The left main has an ostial 60% lesion. 2. The LAD is a transapical vessel. It has minimal luminal irregularities throughout and has a proximal 80% lesion and a mid sequential 90% lesion after the first septal. The diagonal vessels are small, have minimal luminal irregularities. 3. The left circumflex artery has an ostial 80% lesion, seems calcified. The first OM has a 99% lesion with EMMA II flow. The mid circumflex has a 70% lesion tubular. 4. The right coronary artery is a dominant vessel giving off the PDA. Has a 50% lesion proximally and EMMA III flow. CONCLUSION Severe three vessel coronary artery disease Preserved LV systolic function, Elevated LVEDP. RECOMMENDATIONS 1. The patient will be consulted to CT surgery for consideration for CABG. 2. Continue aggressive medical management for coronary artery disease. MD CHAPITO Bashir/CHUNG /5:05 PM /7:32 PM PATTIE
--- NOTE | 2016-12-17 19:58 | RADRPT ---
EXAM DATE/TIME: 12/17/2016 18:38 [facility] COMPARISON: No previous studies available for comparison. INDICATIONS : Pre-op cardiac surgery. MEDICAL HISTORY : Hypertension. Hypercholesterolemia. Renal calculi. Eye problems. Cardiac disorders. SURGICAL HISTORY : Bilateral knee replacements. ENCOUNTER: Initial ACUITY: 1 day PAIN SCORE: 0/10 LOCATION: Bilateral mapping. GREATER SAPHENOUS VEIN THIGH: PROXIMAL: Right 4 mm Left 5 mm MID: Right 3 mm Left 3 mm DISTAL: Right 3 mm Left 3 mm CALF: PROXIMAL: Right 2 mm Left 2 mm MID: Right 2 mm Left 2 mm DISTAL: Right 2 mm Left 2 mm FINDINGS: The venous system of the lower extremities are patent by color Doppler imaging. Measurements of the leg veins (in mm) are listed above. CONCLUSION: Venous mapping as described above. Jarvis Michael MD on December 17, 2016 at 19:56 Board Certified Radiologist. This report was verified electronically.
--- NOTE | 2016-12-17 19:58 | RADRPT ---
EXAM DATE/TIME: 12/17/2016 18:39 [facility] COMPARISON: No previous studies available for comparison. INDICATIONS : Pre-op cardiac surgery. MEDICAL HISTORY : Hypertension. Hypercholesterolemia. Renal calculi. Eye problems. Cardiac disorders. SURGICAL HISTORY : Bilateral knee replacement. ENCOUNTER: Initial ACUITY: 1 day PAIN SCORE: 0/10 LOCATION: Bilateral legs. TECHNIQUE: Venous ultrasound of the left and right leg was performed from the inguinal ligament to the proximal calf. Real-time, color Doppler and spectral tracing, compression and augmentation techniques were us ed. FINDINGS: RIGHT LEG: There is normal compressibility of the deep venous system from the inguinal region to the proximal ca lf. No echogenic clot is seen in the lumen of the common femoral, femoral, popliteal, and posterior tibial veins. There is a normal response of the venous system to proximal and distal augmentation an d respiration. LEFT LEG: There is normal compressibility of the deep venous system from the inguinal region to the proximal ca lf. No echogenic clot is seen in the lumen of the common femoral, femoral, popliteal, and posterior tibial veins. There is a normal response of the venous system to proximal and distal augmentation an d respiration. CONCLUSION: No DVT. Jarvis Mcihael MD on December 17, 2016 at 19:55 Board Certified Radiologist. This report was verified electronically.
[2016-12-17] MEDS: ATORVASTATIN 40 MG TAB PO SCH (20:21)
[2016-12-17] MEDS: SODIUM CHLORIDE 0.9% FLUSH 5 ML FLUSH IV FLUSH SCH (20:21)
[2016-12-17] MEDS ORDERED: SODIUM CHLORIDE 0.9% FLUSH 5 ML FLUSH IVF SCH (21:00)
[2016-12-17 21:42] LABS: BLOOD, URINE NEG (NEG); COMMENT (UR) CULT NOT INDICATED; CULTURE IF INDICATED CULT NOT INDICATED; GLUCOSE,URINE NEG (NEG); KETONE, URINE NEG (NEG); NITRITE,URINE NEG (NEG); PH, URINE 5.5 (5.0-8.5); URINE COLOR LIGHT-YELLOW (YELLW/STRAW)
[2016-12-17] MEDS: ACETAMINOPHEN/HYDROcodone 325 MG/5 MG TAB PO PRN (22:12)
[2016-12-18] VITALS (25 sets, daily range): BP systolic 129–158; BP diastolic 81–92; PULSE 70–94; RESP 16–20; TEMP 97.7–98.6; O2SAT 94–96
[2016-12-18 00:49] LABS: APTT (PATIENT) 36.4 SEC (24.3-30.1)
[2016-12-18] MEDS: CHLORHEXIDINE GLUCONATE 2 % 1 PACK (2 CLOTHS)(taper/protocol) TOP SCH (04:00)
[2016-12-18] MEDS: INSULIN ASPART SUPPLEMENTAL SCALE SQ SCH ×4 (06:06→21:00)
[2016-12-18 06:10] LABS: APTT (PATIENT) 42.5 SEC (24.3-30.1)
[2016-12-18] MEDS: ASPIRIN 81 MG CHEW TAB CHEW SCH (09:00)
[2016-12-18] MEDS: METOPROLOL TARTRATE 25 MG TAB PO SCH ×2 (09:57→20:54)
[2016-12-18] MEDS: SERTRALINE HCL 50 MG TAB PO SCH (09:58)
[2016-12-18] MEDS: MULTIVITAMINS/MINERALS THERAPEUTIC TAB PO SCH (09:59)
[2016-12-18] MEDS: SODIUM CHLORIDE 0.9% FLUSH 5 ML FLUSH IV FLUSH SCH ×2 (09:59→21:00)
[2016-12-18] MEDS: PREGABALIN 75 MG CAP PO SCH ×2 (09:59→20:54)
[2016-12-18] MEDS: ACETAMINOPHEN/HYDROcodone 325 MG/5 MG TAB PO PRN ×2 (10:15→21:01)
--- NOTE | 2016-12-18 13:01 | HHI.PR ---
Subjective Remarks Follow-up for chest pain No chest pains overnight, patient is constipated. Status post cardiac catheterization yesterday. Objective Vitals Vital Signs Date Time Temp Pulse Resp B/P Pulse Ox O2 Delivery O2 Flow Rate FiO2 12/18/16 12:00 72 12/18/16 11:00 88 12/18/16 10:00 92 12/18/16 08:19 79 16 148/92 94 12/18/16 08:00 78 12/18/16 07:00 72 12/18/16 06:00 88 12/18/16 05:00 72 12/18/16 04:00 97.7 85 139/81 95 12/18/16 04:00 74 12/18/16 03:00 71 12/18/16 02:00 70 12/18/16 01:00 72 12/18/16 00:37 71 12/18/16 00:00 72 12/18/16 00:00 74 132/82 96 12/17/16 23:15 17 12/17/16 22:10 23 12/17/16 22:05 96 21 12/17/16 22:00 79 12/17/16 20:00 98.4 90 27 131/78 100 12/17/16 20:00 90 12/17/16 18:00 76 12/17/16 16:00 98.1 71 20 12/17/16 16:00 64 12/17/16 14:00 70 I/O 12/17/16 12/17/16 12/17/16 12/18/16 12/18/16 12/18/16 07:00 15:00 23:00 07:00 15:00 23:00 Intake Total 793 ml 598 ml 16 ml 120 ml Output Total 600 ml 875 ml 600 ml 725 ml Balance 193 ml -277 ml -584 ml -605 ml Intake Oral 0 ml 120 ml 120 ml IV Total 793 ml 478 ml 16 ml Output Urine Total 600 ml 875 ml 600 ml 725 ml # Bowel Movements 0 0 0 Result Diagram: 12/16/16 1010 12/16/16 1010 Objective Remarks GENERAL: Very pleasant middle-aged white male in no acute distress. HEENT: PERRLA, EOMI. No scleral icterus or conjunctival pallor. No lid lag or facial droop. CARDIOVASCULAR: Regular rate and rhythm. No obvious murmurs to auscultation. No chest tenderness to palpation. RESPIRATORY: No obvious rhonchi or wheezing. Clear to auscultation. Breath sounds equal bilaterally. GASTROINTESTINAL: Abdomen soft, non-tender, nondistended. BS normal. MUSCULOSKELETAL: Extremities without clubbing, cyanosis, or edema. No obvious deformities. NEUROLOGICAL: Awake, alert and oriented x4. No focal neurologic deficits. Moving both upper and lower extremities spontaneously. Procedures ASSOCIATE MEDICAL DIRECTOR 12/17/16 Severe three vessel coronary artery disease Preserved LV systolic function, Elevated LVEDP. A/P Problem List: (1) NSTEMI (non-ST elevated myocardial infarction) ICD Code: I21.4 Status: Acute (2) Renal insufficiency ICD Code: N28.9 Status: Acute (3) Hypomagnesemia ICD Code: E83.42 Status: Acute (4) Leukocytosis ICD Code: D72.829 Status: Acute (5) HTN (hypertension) ICD Code: I10 Status: Acute (6) DM (diabetes mellitus) ICD Code: E11.9 Status: Acute Assessment and Plan This is a 71-year-old male presenting with chest pain NSTEMI: Acute onset of chest pain, EKG changes, troponin max at 7. CXR negative, images reviewed by me. Cardiology following, continue heparin drip. Continue aspirin, metoprolol and statin. Ophthalmology consulted for history of optic nerve hemorrhage, patient was cleared. Patient underwent cardiac catheterization 12/17/16, showed severe three-vessel coronary artery disease, consult CT surgery. Patient preserved LV systolic function. Patient will need CABG, likely tomorrow. Borderline diabetes-hemoglobin A1c 6.2, monitor. Metformin hold, sliding scale insulin for now Acute renal insufficiency-resolved with IVF, continue to hold lisinopril and metformin. Hypertension-currently controlled, hold lisinopril. Continue metoprolol. Leukocytosis-likely stress-induced, chest x-ray personally reviewed unremarkable. Urinalysis negative. Leukocytosis resolved. Hypothyroidism-TSH 6.2, free T3 and free T4 normal. DVT prophylaxis: Continue heparin drip. Problem Qualifiers (1) HTN (hypertension): Qualified Code: I10 - Essential hypertension (2) DM (diabetes mellitus): Sahra Klein MD Dec 18, 2016 13:00
--- NOTE | 2016-12-18 15:43 | PD.CAR.PN ---
CVT Progress Note Subjective/Hospital Course: sts data discussed with pt RISK SCORES About the STS Risk Calculator Procedure: CAB Only Risk of Mortality: 0.833% Morbidity or Mortality: 9.94% Long Length of Stay: 3.689% Short Length of Stay: 51.219% Permanent Stroke: 0.901% Prolonged Ventilation: 5.278% DSW Infection: 0.466% Renal Failure: 2.988% Reoperation: 4.132% Objective: Vital Signs Date Time Temp Pulse Resp B/P Pulse Ox O2 Delivery O2 Flow Rate FiO2 12/18/16 13:00 77 12/18/16 12:00 72 12/18/16 11:00 88 12/18/16 10:00 92 12/18/16 08:19 79 16 148/92 94 12/18/16 08:00 78 12/18/16 07:00 72 12/18/16 06:00 88 12/18/16 05:00 72 12/18/16 04:00 97.7 85 139/81 95 12/18/16 04:00 74 12/18/16 03:00 71 12/18/16 02:00 70 12/18/16 01:00 72 12/18/16 00:37 71 12/18/16 00:00 72 12/18/16 00:00 74 132/82 96 12/17/16 23:15 17 12/17/16 22:10 23 12/17/16 22:05 96 21 12/17/16 22:00 79 12/17/16 20:00 98.4 90 27 131/78 100 12/17/16 20:00 90 12/17/16 18:00 76 12/17/16 16:00 98.1 71 20 12/17/16 16:00 64 Labs: Laboratory Tests Test 12/18/16 12/18/16 12/18/16 05:34 07:48 13:00 Activated Partial 42.5 SEC 42.0 SEC Thromboplast Time (24.3-30.1) (24.3-30.1) Free Thyroxine 0.97 NG/DL (0.76-1.46) Total Triiodothyronine 105 NG/DL (60-181) Blood Type O POSITIVE O POSITIVE Antibody Screen NEGATIVE Crossmatch Leukocyte-Reduced Red Blood Cells Blood Bank Comment Result Diagram: 12/16/16 1010 12/16/16 1010 (1) NSTEMI (non-ST elevated myocardial infarction) Plan: Awaiting Ophthalmology clearance for LHC +/- PCI Continue aggressive medical therapy Keep NPO Risk benefits of LHC +/- PCI including but not limited to neuro vascular trauma , kidney failure, bleeding, [place], emergent CABG, dissection, Stroke and has been explained to the patient and he is willing to proceed. (2) Optic nerve hemorrhage (3) DM (diabetes mellitus) (4) HTN (hypertension) Problem Qualifiers (1) Optic nerve hemorrhage: Qualified Code: H47.023 - Optic nerve hemorrhage, bilateral (2) DM (diabetes mellitus): (3) HTN (hypertension): Qualified Code: I10 - Essential hypertension Tammie Mccall Dec 18, 2016 15:43
[2016-12-18] MEDS: PHENOL 1.4% SOLN 180 ML BTL OROPHARYNG PRN ×2 (16:59→20:56)
[2016-12-18] MEDS: NYSTAT/DIPHENHY/LIDO MOUTHWASH (Adult) 120ML SWISH-SWAL SCH ×2 (18:43→21:00)
[2016-12-18] MEDS: ATORVASTATIN 40 MG TAB PO SCH (20:55)
[2016-12-19] VITALS (20 sets, daily range): BP systolic 100–145; BP diastolic 59–99; PULSE 66–95; RESP 10–18; TEMP 97.2–98.4; O2SAT 92–99
[2016-12-19] MEDS: CHLORHEXIDINE GLUCONATE 2 % 1 PACK (2 CLOTHS)(taper/protocol) TOP SCH (03:07)
[2016-12-19] MEDS ORDERED: LIDOCAINE HCL 1% 30 ML VIAL OTHER ONE (05:00)
[2016-12-19] MEDS ORDERED: GLYCOPYRROLATE 0.2 MG/ML VIAL IV ONE (05:00)
[2016-12-19] MEDS ORDERED: PHENYLEPHRINE HCL 10 MG/ML VIAL IV ONE (05:00)
[2016-12-19] MEDS ORDERED: AMINOCAPROIC ACID INJ 250 MG/ML 20 ML VIAL IV ONE (05:00)
[2016-12-19] MEDS ORDERED: NOREPINEPHRINE 4 MG/4 ML AMP IV ONE (05:00)
[2016-12-19] MEDS ORDERED: CALCIUM CHLORIDE 10% SOLN 1 GRAM/10 ML SYR IV ONE (05:00)
[2016-12-19] MEDS ORDERED: DEXTROSE 5% IN WATER 100ML INJ 100 ML IV ONE (05:00)
[2016-12-19] MEDS ORDERED: ARTIFICIAL TEARS OPTH OINT 3.5 APPLIC/3.5 GM TUBO ONE (05:00)
[2016-12-19] MEDS: INSULIN ASPART SUPPLEMENTAL SCALE SQ SCH (05:56)
[2016-12-19] MEDS ORDERED: VANCOMYCIN HCL 1000 MG VIAL ONE (06:28)
[2016-12-19] MEDS ORDERED: methylPREDNISolone SOD SUCC 125 MG/2 ML VIAL ONE (06:29)
[2016-12-19] MEDS ORDERED: HEPARIN SODIUM - SQ 10,000 UNITS/ML VIAL ONE (06:29)
[2016-12-19 07:11] LABS: APTT (PATIENT) 24.5 SEC (24.3-30.1); MEAN CELL VOLUME 89.7 FL (80.0-100.0); MEAN CORPUSCULAR HEMOGLOBIN 29.6 PG (27.0-34.0); PLATELET COUNT 223 TH/MM3 (150-450); RED BLOOD COUNT 4.34 MIL/MM3 (4.50-5.90); RED CELL DISTRIBUTION WIDTH 15.5 % (11.6-17.2); REVIEW FLAG FINAL; WHITE BLOOD COUNT 8.2 TH/MM3 (4.0-11.0)
[2016-12-19] MEDS ORDERED: CARDIOPLEGIC IRR 1,000 ML ONE (07:18)
[2016-12-19] MEDS ORDERED: POTASSIUM CHLORIDE 20 MEQ/10 ML VIAL ONE (07:19)
[2016-12-19] MEDS ORDERED: SODIUM BICARBONATE 8.4% INJ 50 ML ONE (07:19)
[2016-12-19] MEDS ORDERED: ALBUMIN HUMAN 25% 12.5 GM/50 ML BAGP IV ONE (07:19)
[2016-12-19] MEDS ORDERED: MANNITOL INJ 50 ML ONE (07:20)
[2016-12-19] MEDS: SERTRALINE HCL 50 MG TAB PO SCH (09:00)
[2016-12-19] MEDS: MULTIVITAMINS/MINERALS THERAPEUTIC TAB PO SCH (09:00)
[2016-12-19] MEDS ORDERED: LACTATED RINGER'S 1000 ML INJ 500 ML IV PRN (11:52)
[2016-12-19] MEDS ORDERED: POTASSIUM CHLOR 20 MEQ PREMIX 100 ML IV PRN ×3 (12:00)
[2016-12-19] MEDS ORDERED: Post-op Orders (for Pharmacy) MISC OTHER ONE (12:00)
[2016-12-19] MEDS ORDERED: ACETAMINOPHEN 650 MG SUPP RECTAL PRN (12:00)
[2016-12-19] MEDS ORDERED: hydrALAZINE HCL 20 MG/ML VIAL IV PRN (12:00)
[2016-12-19] MEDS ORDERED: ONDANSETRON HCL 4 MG/2 ML VIAL IV PUSH PRN (12:00)
[2016-12-19] MEDS ORDERED: POTASSIUM CHLORIDE 20 MEQ CONTROLLED RELEASE TAB PO PRN ×2 (12:00)
[2016-12-19] MEDS ORDERED: MAGNESIUM SULFATE INJ 2 GM in SODIUM CHLORIDE 0.9% INJ 100 ML IV PRN (12:00)
[2016-12-19] MEDS ORDERED: DEXTROSE 50% IN WATER 50 ML VIAL(D50) IV PUSH PRN (12:00)
[2016-12-19] MEDS ORDERED: METOPROLOL TARTRATE 5 MG/5 ML VIAL IV PUSH PRN (12:00)
[2016-12-19] MEDS ORDERED: CALCIUM CHLORIDE INJ 1 GM in SODIUM CHLORIDE 0.9% INJ 100 ML IV PRN (12:00)
[2016-12-19] MEDS ORDERED: ACETAMINOPHEN 325 MG TAB PO PRN (12:00)
[2016-12-19] MEDS ORDERED: CALCIUM CHLORIDE 10% 1 GRAM/10 ML VIAL IV PRN (12:00)
[2016-12-19] MEDS ORDERED: INSULIN REGULAR (IV INFUSION) 100 UNITS in SODIUM CHLORIDE 0.9% INJ 99 ML IV SCH (12:00)
[2016-12-19] MEDS ORDERED: SODIUM CHLORIDE 0.9% FLUSH 5 ML FLUSH IV FLUSH PRN (12:00)
[2016-12-19] MEDS ORDERED: CLEVIDIPINE INJ 50 ML IV SCH (12:00)
--- NOTE | 2016-12-19 12:01 | PD.OP ---
cc: Jose Gale MD; Liana Granados MD Operative Report Date of Surgery: Dec 19, 2016 Preoperative Diagnosis: (1) NSTEMI (non-ST elevated myocardial infarction) (2) CAD (coronary artery disease) Postoperative Diagnosis: same Procedure: urgent CABG x 2 QUICK to LAD SVG to OM! EVH Anesthesia: Dr. Ohara Surgeon: Liana Granados Adon(s): Eric Tyler Operation and Findings: The risks, benefits, complications, treatment options, and expected outcomes were discussed with the patient. The possibilities of reaction to medication, pulmonary aspiration, perforation of viscus, bleeding, recurrent infection, the need for additional procedures, failure to diagnose a condition, and creating a complication requiring transfusion or operation were discussed with the patient. The patient concurred with the proposed plan, giving informed consent. The site of surgery properly noted/marked. The patient was taken to Operating Room, identified as Geoff Campbell and the procedure verified as CABG, EVH. A Time Out was held and the above information confirmed. Standard monitoring lines and Guerra catheter were placed. General anesthesia was induced. The patient was prepped and draped in a sterile fashion. A median sternotomy was performed and electrocautery was used to obtain hemostasis. The left internal mammary artery was procured as a pedicle from the 7th rib to the 1st rib in the usual manner. Simultaneously left greater saphenous vein was procured from the left leg using a minimally invasive endoscopic technique. The vein was prepared for anastomosis and the leg wound was irrigated and closed in 2 layers. The pericardium was opened and a pericardial sling was created using interrupted 0 silk sutures. The patient was heparinized for cardiopulmonary bypass and the distal mammary pedicle was instrumented for anastomosis. The heart was instrumented for cardiopulmonary bypass in the usual manner. Antegrade blood cardioplegia was employed. The patient was placed on cardiopulmonary bypass. An aortic cross-clamp was applied and the heart was arrested using cold blood cardioplegia. Antegrade cardioplegia was administered after he each anastomosis. After adequate arrest, the 1st circumflex marginal artery was then opened with a Choctaw blade and found to be a 1.5 millimeter good target. The OM1 artery was intramyocardial. Saphenous vein was approximated to the OM1 artery using a running 7 0 Prolene suture. The graft was measured for length and orientation and was suspended from the pericardium. The distal LAD was opened with a Choctaw blade and found to be a 1.5 millimeter good target. The left internal mammary artery was approximated to the LAD using a running 7 0 Prolene suture. The pedicle was attached to the epicardium using interrupted 5 0 silk suture. The patient had significant diffuse CAD and there were no diagonals or other marginals suitable for grafting. The patient was systemically rewarmed and received a hotshot dose of warm blood cardioplegia. The aorta was vented and the proximal anastomosis to the OM1 graft was accomplished using a running 5 0 Prolene suture after creating an aortotomy was a 5 millimeter punch. The cross-clamp was removed and all proximal and distal anastomoses were examined for hemostasis. The patient was paced at weaned from cardiopulmonary bypass. Protamine was given. There was no adverse reaction. Decannulation was carried out without incident. Wound was checked for hemostasis which was obtained using electrocautery. A 36 Samoan mediastinal and 32 Samoan left pleural chest was were placed and secured to the skin with 0 silk suture. The sternum was closed with stainless steel wire. The fascia was closed with 1. PDS. The subcutaneous tissue was closed using a running 2-0 Vicryl suture. The skin was closed with 4-0 Monocryl. Sterile dressings were placed. At the end of the operation, all sponge, instruments, and needle counts were correct. The patient was transferred to the CVICU in stable condition. Findings: Diffuse CAD. Fair to poor distal targets. XC: 39 min CPB: 57 min Drains: mediastinal x 1 pleural x 1 Complications: none Disposition: to CVICU in stable condition Liana Granados MD Dec 19, 2016 12:01
[2016-12-19] MEDS ORDERED: fentaNYL CITRATE 1000 MCG/20 ML VIAL ONE (12:35)
[2016-12-19] MEDS ORDERED: MIDAZOLAM HCL 5 MG/5 ML VIAL ONE (12:35)
[2016-12-19] MEDS: ACETAMINOPHEN 1000 MG/100 ML VIAL IV SCH ×2 (13:02→17:05)
[2016-12-19] MEDS ORDERED: SODIUM CHLORIDE 0.9% INJ 100 ML IV ONE (13:05)
[2016-12-19] MEDS ORDERED: PROTAMINE SULFATE 250 MG/25 ML VIAL IV ONE (13:05)
[2016-12-19] MEDS ORDERED: SODIUM CHLOR 0.9% 250 ML INJ 500 ML IV ONE (13:05)
[2016-12-19] MEDS ORDERED: SODIUM CHLORID 0.9% 500 ML INJ 500 ML IV ONE (13:05)
[2016-12-19] MEDS ORDERED: SODIUM CHLOR 0.9% 1000 ML INJ 1,000 ML IV ONE (13:05)
[2016-12-19] MEDS ORDERED: LACTATED RINGER'S 1000 ML INJ 2,000 ML IV ONE (13:05)
--- NOTE | 2016-12-19 13:21 | RADRPT ---
EXAM DATE/TIME: 12/19/2016 12:33 [facility] COMPARISON: CHEST PA & LAT, December 15, 2016, 22:21. INDICATIONS : Status post CABG. MEDICAL HISTORY : Hypertension. Hypercholesterolemia. Renal calculi. Eye problems. Cardiac disorders. SURGICAL HISTORY : Bilateral knee replacements. ENCOUNTER: Initial ACUITY: 1 day PAIN SCORE: 0/10 LOCATION: Bilateral chest FINDINGS: The heart is normal in size. The patient is post median sternotomy. There is a chest tube in place on the left. Endotracheal tubes in good position. There is a nasogastric tube present. There is minimal basal atelectasis on the left. CONCLUSION: Support equipment in good position. Stable postoperative chest. Theron Mata MD on December 19, 2016 at 13:18 Board Certified Radiologist. This report was verified electronically.
[2016-12-19] MEDS ORDERED: RESP: ALBUTEROL 2.5 MG/IPRATROPIUM 0.5 MG NEB (PRN) NEB (13:45)
[2016-12-19] MEDS ORDERED: RESP: RACEPINEPHRINE 2.25% 0.5 ML NEB NEB PRN (13:45)
[2016-12-19] MEDS: RESP: ALBUTEROL 2.5 MG/IPRATROPIUM 0.5 MG NEB (SCH) NEB ×2 (15:45→21:38)
[2016-12-19] MEDS: ceFAZolin 2 GM PREMIX 50 ML IV SCH (16:10)
[2016-12-19] MEDS: oxyCODONE/ACETAMINOPHEN 5 MG/325 MG TAB PO PRN (17:06)
--- NOTE | 2016-12-19 18:40 | HHI.PR ---
Subjective Remarks Follow-up for chest pain No further chest pain, no shortness of breath, afebrile. Objective Vitals Vital Signs Date Time Temp Pulse Resp B/P Pulse Ox O2 Delivery O2 Flow Rate FiO2 12/19/16 15:50 98 40 12/19/16 15:00 97 Bi-Pap 50 12/19/16 15:00 73 12/19/16 15:00 73 12/19/16 13:42 94 45 12/19/16 13:33 92 Nasal Cannula 5 12/19/16 13:33 92 CPAP 5.00 12/19/16 13:02 95 50 12/19/16 13:00 40 12/19/16 12:55 50 12/19/16 12:49 71 12/19/16 12:32 95 60 12/19/16 12:20 50 12/19/16 12:20 74 12/19/16 12:20 93 Mechanical Ventilator 50 12/19/16 12:20 97.2 74 11 100/62 95 115/59 12/19/16 09:20 98 21 12/19/16 05:57 98.4 84 18 145/99 98 12/19/16 05:00 82 12/19/16 04:00 81 12/19/16 03:00 72 12/19/16 02:00 66 12/19/16 01:00 72 12/19/16 00:00 68 12/18/16 23:00 72 12/18/16 22:00 80 12/18/16 21:00 88 12/18/16 20:00 98.3 83 20 158/92 94 12/18/16 20:00 80 12/18/16 19:00 90 I/O 12/18/16 12/18/16 12/18/16 12/19/16 12/19/16 12/19/16 07:00 15:00 23:00 07:00 15:00 23:00 Intake Total 120 ml 892 ml 240 ml 2354 ml Output Total 725 ml 750 ml 950 ml 1250 ml Balance -605 ml 142 ml -710 ml 1104 ml Intake Oral 120 ml 700 ml 240 ml 0 ml IV Total 192 ml 2354 ml Output Urine Total 725 ml 750 ml 950 ml 1000 ml Gastric Drainage Total 50 ml Chest Tube Drainage Total 200 ml # Bowel Movements 0 Result Diagram: 12/19/16 0620 12/16/16 1010 Objective Remarks GENERAL: Very pleasant middle-aged white male in no acute distress. HEENT: PERRLA, EOMI. No scleral icterus or conjunctival pallor. No lid lag or facial droop. CARDIOVASCULAR: Regular rate and rhythm. No obvious murmurs to auscultation. No chest tenderness to palpation. RESPIRATORY: No obvious rhonchi or wheezing. Clear to auscultation. Breath sounds equal bilaterally. GASTROINTESTINAL: Abdomen soft, non-tender, nondistended. BS normal. MUSCULOSKELETAL: Extremities without clubbing, cyanosis, or edema. No obvious deformities. NEUROLOGICAL: Awake, alert and oriented x4. No focal neurologic deficits. Moving both upper and lower extremities spontaneously. 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 A/P Problem List: (1) NSTEMI (non-ST elevated myocardial infarction) ICD Code: I21.4 Status: Acute (2) Renal insufficiency ICD Code: N28.9 Status: Acute (3) Hypomagnesemia ICD Code: E83.42 Status: Acute (4) Leukocytosis ICD Code: D72.829 Status: Acute (5) HTN (hypertension) ICD Code: I10 Status: Acute (6) DM (diabetes mellitus) ICD Code: E11.9 Status: Acute Assessment and Plan This is a 71-year-old male presenting with chest pain NSTEMI: Acute onset of chest pain, EKG changes, troponin max at 7. CXR negative, images reviewed by me. Cardiology following, continue heparin drip. Continue aspirin, metoprolol and statin. Ophthalmology consulted for history of optic nerve hemorrhage, patient was cleared. Patient underwent cardiac catheterization 12/17/16, showed severe three-vessel coronary artery disease, consult CT surgery. Patient preserved LV systolic function. Patient will need CABG, likely tomorrow. Borderline diabetes-hemoglobin A1c 6.2, monitor. Metformin hold, sliding scale insulin for now Acute renal insufficiency-resolved with IVF, continue to hold lisinopril and metformin. Hypertension-currently controlled, hold lisinopril. Continue metoprolol. Leukocytosis-likely stress-induced, chest x-ray personally reviewed unremarkable. Urinalysis negative. Leukocytosis resolved. Hypothyroidism-TSH 6.2, free T3 and free T4 normal. DVT prophylaxis: Continue heparin drip. Problem Qualifiers (1) HTN (hypertension): Qualified Code: I10 - Essential hypertension (2) DM (diabetes mellitus): Sahra Klein MD Dec 19, 2016 18:40
[2016-12-19] MEDS ORDERED: AMIODARONE 150 MG/D5W 97 ML BOLUS 10 MINUTES IV ONE ×2 (20:45)
[2016-12-19] MEDS: MAGNESIUM SULFATE INJ 2 GM in SODIUM CHLORIDE 0.9% INJ 100 ML IV PRN (20:51)
[2016-12-19] MEDS: ATORVASTATIN 40 MG TAB PO SCH (20:52)
[2016-12-19] MEDS: AMIODARONE 200 MG TAB PO SCH (20:52)
[2016-12-19] MEDS: SODIUM CHLORIDE 0.9% FLUSH 5 ML FLUSH IV FLUSH SCH (21:00)
[2016-12-19] MEDS ORDERED: AMIODARONE 200 MG TAB PO SCH (21:00)
[2016-12-19] MEDS: NYSTAT/DIPHENHY/LIDO MOUTHWASH (Adult) 120ML SWISH-SWAL SCH (21:00)
[2016-12-19] MEDS: PREGABALIN 75 MG CAP PO SCH (23:22)
[2016-12-19] MEDS: ACETAMINOPHEN/HYDROcodone 325 MG/5 MG TAB PO PRN (23:38)
[2016-12-20] VITALS (15 sets, daily range): BP systolic 111–136; BP diastolic 64–82; PULSE 70–157; RESP 18–20; TEMP 96.4–99.8; O2SAT 95–99
[2016-12-20] MEDS: ACETAMINOPHEN 1000 MG/100 ML VIAL IV SCH ×2 (01:15→05:37)
[2016-12-20] MEDS: ceFAZolin 2 GM PREMIX 50 ML IV SCH ×4 (01:17→23:59)
[2016-12-20] MEDS: RESP: ALBUTEROL 2.5 MG/IPRATROPIUM 0.5 MG NEB (SCH) NEB ×4 (03:10→20:00)
[2016-12-20] MEDS: CHLORHEXIDINE GLUCONATE 2 % 1 PACK (2 CLOTHS)(taper/protocol) TOP SCH (04:00)
--- NOTE | 2016-12-20 04:48 | RADRPT ---
EXAM DATE/TIME: 12/20/2016 03:45 [facility] COMPARISON: CHEST SINGLE AP, December 19, 2016, 12:33. INDICATIONS : Status post CABG MEDICAL HISTORY : Hypertension. Hypercholesterolemia. Renal calculi. Eye problems. SURGICAL HISTORY : Bilateral knee replacements. ENCOUNTER: Subsequent ACUITY: 1 day PAIN SCORE: 0/10 LOCATION: Bilateral chest FINDINGS: The cardiac silhouette is normal in transverse diameter. Median sternotomy wires are present. A left chest tube is in place. There is no evidence of pneumothorax. There is subsegmental atelectasis in th e left base. There is improving vascular congestion. CONCLUSION: 1. Cardiomegaly 2. Resolving pulmonary vascular congestion. 3. There is no evidence of pneumothorax. Maxwell Santos MD on December 20, 2016 at 4:45 Board Certified Radiologist. This report was verified electronically.
[2016-12-20 05:22] LABS: HEMATOCRIT 31.2 % (39.0-51.0); MEAN CELL VOLUME 89.1 FL (80.0-100.0); MEAN CORPUSCULAR HEMOGLOBIN 29.2 PG (27.0-34.0); MEAN CORPUSCULAR HGB CONC 32.8 % (32.0-36.0); PLATELET COUNT 174 TH/MM3 (150-450); RED BLOOD COUNT 3.51 MIL/MM3 (4.50-5.90); RED CELL DISTRIBUTION WIDTH 15.1 % (11.6-17.2); REVIEW FLAG FINAL; WHITE BLOOD COUNT 14.4 TH/MM3 (4.0-11.0)
[2016-12-20] MEDS: AMIODARONE 200 MG TAB PO SCH ×4 (05:37→22:02)
[2016-12-20] MEDS: PANTOPRAZOLE SOD 40 MG DELAYED RELEASE TAB PO SCH (05:37)
[2016-12-20 05:57] LABS: BICARBONATE 25.1 MEQ/L (21.0-32.0); MAGNESIUM 1.8 MG/DL (1.5-2.5); POTASSIUM 4.4 MEQ/L (3.5-5.1)
[2016-12-20] MEDS ORDERED: AMIODARONE 150 MG/D5W 97 ML BOLUS 10 MINUTES IV ONE ×2 (07:30)
[2016-12-20] MEDS: MAGNESIUM SULFATE INJ 2 GM in SODIUM CHLORIDE 0.9% INJ 100 ML IV PRN (08:05)
--- NOTE | 2016-12-20 08:33 | EKG ---
Date Performed: 12/20/2016 Time Performed: 05:58:19 PTAGE: 71 years EKG: Sinus rhythm NORMAL ECG NO PREVIOUS TRACING DOCTOR: Андрей Raymundo Interpretating Date/Time 12/20/2016 08:32:06
--- NOTE | 2016-12-20 08:40 | EKG ---
Date Performed: 12/19/2016 Time Performed: 20:15:48 PTAGE: 71 years EKG: ATRIAL FIBRILLATION WITH RAPID VENTRICULAR RATE Extensive ST-T changes are nonspecific Bord blas ECG NO PREVIOUS TRACING DOCTOR: Андрей Raymundo Interpretating Date/Time 12/20/2016 08:37:33
[2016-12-20] MEDS: AMIODARONE INJ 450 MG in DEXTROSE 5% IN WATE(EXCEL) INJ 241 ML IV SCH ×2 (08:51)
[2016-12-20] MEDS ORDERED: METOPROLOL TARTRATE 25 MG TAB PO SCH ×2 (09:00)
[2016-12-20] MEDS: NYSTAT/DIPHENHY/LIDO MOUTHWASH (Adult) 120ML SWISH-SWAL SCH ×4 (09:00→22:00)
[2016-12-20] MEDS: PREGABALIN 75 MG CAP PO SCH ×2 (09:17→22:00)
[2016-12-20] MEDS: ASPIRIN 81 MG CHEW TAB PO SCH (09:18)
[2016-12-20] MEDS: SODIUM CHLORIDE 0.9% FLUSH 5 ML FLUSH IV FLUSH SCH ×2 (09:19→22:01)
[2016-12-20] MEDS: ACETAMINOPHEN/HYDROcodone 325 MG/5 MG TAB PO PRN (10:02)
[2016-12-20] MEDS: MULTIVITAMINS/MINERALS THERAPEUTIC TAB PO SCH (10:03)
[2016-12-20] MEDS: SERTRALINE HCL 50 MG TAB PO SCH (10:03)
[2016-12-20] MEDS ORDERED: SOD PHOSPHATE/SOD BIPHOSPHATE (ADULT) ENEMA 133ML RECTAL PRN (11:15)
[2016-12-20] MEDS ORDERED: GLUCAGON 1 MG/ML VIAL OTHER PRN (11:15)
[2016-12-20] MEDS ORDERED: INSULIN DETEMIR 100 UNITS/ML VIAL SQ ONE (11:15)
[2016-12-20] MEDS ORDERED: BISACODYL 10 MG SUPP RECTAL PRN (11:15)
[2016-12-20] MEDS ORDERED: DEXTROSE 50% IN WATER 50 ML VIAL(D50) IV PRN (11:15)
[2016-12-20] MEDS: DOCUSATE SODIUM 100 MG CAP PO SCH ×2 (11:53→22:01)
[2016-12-20] MEDS: oxyCODONE/ACETAMINOPHEN 5 MG/325 MG TAB PO PRN ×3 (13:25→22:03)
--- NOTE | 2016-12-20 13:44 | PD.CAR.PN ---
CVT Progress Note CVT: POD #: 1 Subjective/Hospital Course: 63/ male admitted with NSTEMI, , underwent Cardiac cath by Dr Acevedo, multi vessel disease with EF 60% PMH: HTN, HLP, depression , DM , ischemic optic neuropathy ( was seen by ophthalmology , Dr Verito Solorzano, ( control cardiac risk factors ) incidental finding of elevated TSH 6.20 normal T3 T4 ( subclinical hypothyroidism) surgery: 12/19 urgent CABG x 2, QUICK to LAD SVG to OM 1, EVH extubated after surgery, crystalloid 2000cc, 700 urine output 12/20 went into afib RVR last pm, given bolus of IV amiodarone , converted , then went back into afib RVR this am required additional bolus and IV gtt converted last in am , K+ and mag replaced PLT 84, will monitor transfer to stepdown unit Objective: GENERAL: SKIN: Warm and dry., prevena to chest incision to leg intact HEAD: Normocephalic. EYES: No scleral icterus. No injection or drainage. NECK: Supple, trachea midline. No JVD or lymphadenopathy. CARDIOVASCULAR: Regular rate and rhythm without murmurs, gallops, or rubs. mild edema RESPIRATORY: Breath sounds equal bilaterally. No accessory muscle use. chest tube no iar leak, drained 250cc/ 12 hrs GASTROINTESTINAL: Abdomen soft, non-tender, nondistended. MUSCULOSKELETAL: No cyanosis, or edema. BACK: Nontender without obvious deformity. No CVA tenderness. Vital Signs Date Time Temp Pulse Resp B/P Pulse Ox O2 Delivery O2 Flow Rate FiO2 12/20/16 11:00 70 12/20/16 11:00 70 12/20/16 11:00 99 Nasal Cannula 3.00 12/20/16 11:00 97.6 70 20 111/72 99 120/64 12/20/16 07:22 97 Nasal Cannula 3.00 12/20/16 07:00 157 12/20/16 07:00 96 Nasal Cannula 3.00 12/20/16 07:00 157 12/20/16 07:00 99.0 157 20 122/65 96 128/79 12/20/16 03:08 98 40 12/20/16 03:00 79 12/20/16 03:00 98 Bi-Pap 40 12/20/16 03:00 98.4 85 18 121/82 97 136/68 12/20/16 03:00 79 12/20/16 00:00 98 Bi-Pap 40 12/19/16 23:50 98 40 12/19/16 23:00 87 12/19/16 23:00 97.6 95 17 145/73 97 137/64 12/19/16 23:00 87 12/19/16 23:00 97 Nasal Cannula 3.00 12/19/16 21:50 99 Nasal Cannula 3.00 12/19/16 19:00 78 117/77 122/65 12/19/16 19:00 79 12/19/16 19:00 97 Nasal Cannula 3.00 12/19/16 19:00 79 12/19/16 19:00 98.0 78 18 117/77 97 122/65 12/19/16 15:50 98 40 12/19/16 15:00 97 Bi-Pap 50 12/19/16 15:00 73 12/19/16 15:00 97.2 73 10 97 143/70 12/19/16 15:00 73 12/19/16 13:42 94 45 12/19/16 13:33 92 Nasal Cannula 5 12/19/16 13:33 92 CPAP 5.00 Labs: Laboratory Tests Test 12/20/16 04:41 White Blood Count 14.4 TH/MM3 (4.0-11.0) Red Blood Count 3.51 MIL/MM3 (4.50-5.90) Hemoglobin 10.3 GM/DL (13.0-17.0) Hematocrit 31.2 % (39.0-51.0) Mean Corpuscular Volume 89.1 FL (80.0-100.0) Mean Corpuscular Hemoglobin 29.2 PG (27.0-34.0) Mean Corpuscular Hemoglobin 32.8 % Concent (32.0-36.0) Red Cell Distribution Width 15.1 % (11.6-17.2) Platelet Count 174 TH/MM3 (150-450) Mean Platelet Volume 7.5 FL (7.0-11.0) Sodium Level 138 MEQ/L (136-145) Potassium Level 4.4 MEQ/L (3.5-5.1) Chloride Level 103 MEQ/L (98-107) Carbon Dioxide Level 25.1 MEQ/L (21.0-32.0) Anion Gap 10 MEQ/L (5-15) Blood Urea Nitrogen 17 MG/DL (7-18) Creatinine 1.01 MG/DL (0.60-1.30) Estimat Glomerular Filtration 73 ML/MIN (>89) Rate Random Glucose 118 MG/DL (74-106) Calcium Level 8.8 MG/DL (8.5-10.1) Magnesium Level 1.8 MG/DL (1.5-2.5) Result Diagram: 12/20/1644012/20/16440 Telemetry: AFib> NSR (1) NSTEMI (non-ST elevated myocardial infarction) Plan: (2) S/P CABG x 2 Plan: ASA, statin , BB pulm toileting, nebs ezpap acapella + 3 kg, eval for diuresis in am replace electrolytes leukocytosis 2/2 steroids leave chest tubes in place (3) Optic nerve hemorrhage Plan: control cardiac risk factors (4) DM (diabetes mellitus) Plan: weaned off insulin gtt, diabetic diet restart metformin in am (5) HTN (hypertension) Plan: controlled, on BB (6) Afib Plan: on amiodarone / BB dex v score 3.2 Problem Qualifiers (1) Optic nerve hemorrhage: Qualified Code: H47.023 - Optic nerve hemorrhage, bilateral (2) DM (diabetes mellitus): (3) HTN (hypertension): Qualified Code: I10 - Essential hypertension Tammie Mccall Dec 20, 2016 13:44
--- NOTE | 2016-12-20 13:56 | HHI.FF ---
Face to Face Verification Diagnosis: (1) HTN (hypertension) (2) DM (diabetes mellitus) (3) NSTEMI (non-ST elevated myocardial infarction) (4) S/P CABG x 2 (5) Optic nerve hemorrhage (6) Ischemic optic neuropathy, bilateral (7) Afib Physical Therapy Order: Evaluate and Treat Home Health Nursing Order: Signs/symptoms of disease process Diabetic education Wound care and dressing changes Nursing assessment with vital signs Instructions: Heart and Vascular Surgery patients *Special attention to sternal dressing Mandatory frequency Assess and evaluation, 4 days in a row The next week 3X week 2 times a week for 4 weeks 1 time a week for 5 weeks Schedule Heart and Vascular patients for full 60 day certification period Initial visit Review Open Heart Surgery Discharge Instructions (Sternal precautions, Activity, Elastic hose, Incision care, Driving, Incentive spirometry, Smoking, [place], Work and other) Need Betadine to paint incision Medication reconciliation Importance of follow up care/ check on appointments Make calendar record temperature daily When to call [facility] nurse, review instructions, phone list Incentive Spirometry, demonstration Visit 1- Begin discharge instruction for patient family and/ or caregiver using teach back method- Signs and symptoms of infection Disease characteristics Medicines and side effects Foods and nutrition/ appetite Infection control/ hand washing/ hygiene Visit 2- Continue teaching Discharge instructions- include additional information on smoking cessation , sternal dressing (sternal vac) Visit 3- Continue teaching- Cough and deep breathing, incision monitoring. Choose my plate Visit 4- Continue teaching- Discuss limitations Discuss how they are feeling Discuss progress toward goals Remaining visits- continue teaching and monitoring Incentive spirometry Q1 hr x 10, while awake, also use acapella device hourly whole awake Sternal Breast Bone Precautions: NO pushing or pulling, ( pt must use sternal pillow to support chest with all activities and with coughing ( takes up to 3 months breast bone to heal ) Daily incision care: ok to shower daily, no tub bath. Wash all incisions with liquid dial soap, clean wash cloth to each site, rinse and pat dry. Observe for any signs of infection, such as drainage which is dark yellow, castro, green or foul smelling. Immediately report to the surgeon any drainage from the chest incision, or legs, and for any abnormal drainage from the chest tube sites. Notify surgeon if any temp >101.5 degrees F. When specialty dressing removed/ or if you do not have one, continue to shower daily as above, then rinse and pat incision dry and paint with betadine daily x 5 days. Allow steri strips to fall off if you have any. Avoid lotions, creams, salves, oils, etc. for the first month Please see attached forms for additional instructions regarding post Open Heart specialty wound vacuum dressings. ERON or Prevena , Dressing to be removed by Nursing staff on ___12/26/16____ For Dr. Granados patients , please obtain CBC, BMP, PA & Lat CXR in 2 weeks, results to Dr. Granados ( prescription will be given) ( ) (Tele: [phone]) , Valve replacement pts will need 2decho in 2 weeks with results to Dr. Granados . Please obtain 2 d echo at your wrestling coach office if possible F/U appointment: as per DC instructions: PCP in 2 weeks, CV surgeon 2 weeks, Electric Repair Supervisor 3-4 weeks For any questions regarding incisions/ dressing / meds / post op care or above Symptoms, Saturday 8am-5pm Heart & Vascular Surgery Office ( Dr. Andrew & Dr. Granados), After Hours / Nights (5pm -8am) Weekends and Holidays Please call [facility] ([facility]) Charge Nurse I have seen patient Geoff Campbell on 12/20/16. My clinical findings support the need for the requested home health care services because: Deconditioned w/ increased weakness I certify that my clinical findings support that this patient is homebound because: Post-op weakness Tammie Mccall Dec 20, 2016 13:56
--- NOTE | 2016-12-20 14:18 | HHI.PR ---
Subjective Remarks Follow-up for coronary artery disease No chest pain, status post CABG yesterday, still well-seen A. fib, amiodarone started, now rate controlled., She in sinus. Afebrile. No chest pain, surgical pain 12/14, no shortness of breath. Objective Vitals Vital Signs Date Time Temp Pulse Resp B/P Pulse Ox O2 Delivery O2 Flow Rate FiO2 12/20/16 13:00 96.4 73 20 121/67 99 12/20/16 11:00 70 12/20/16 11:00 70 12/20/16 11:00 99 Nasal Cannula 3.00 12/20/16 11:00 97.6 70 20 111/72 99 120/64 12/20/16 07:22 97 Nasal Cannula 3.00 12/20/16 07:00 157 12/20/16 07:00 96 Nasal Cannula 3.00 12/20/16 07:00 157 12/20/16 07:00 99.0 157 20 122/65 96 128/79 12/20/16 03:08 98 40 12/20/16 03:00 79 12/20/16 03:00 98 Bi-Pap 40 12/20/16 03:00 98.4 85 18 121/82 97 136/68 12/20/16 03:00 79 12/20/16 00:00 98 Bi-Pap 40 12/19/16 23:50 98 40 12/19/16 23:00 87 12/19/16 23:00 97.6 95 17 145/73 97 137/64 12/19/16 23:00 87 12/19/16 23:00 97 Nasal Cannula 3.00 12/19/16 21:50 99 Nasal Cannula 3.00 12/19/16 19:00 78 117/77 122/65 12/19/16 19:00 79 12/19/16 19:00 97 Nasal Cannula 3.00 12/19/16 19:00 79 12/19/16 19:00 98.0 78 18 117/77 97 122/65 12/19/16 15:50 98 40 12/19/16 15:00 97 Bi-Pap 50 12/19/16 15:00 73 12/19/16 15:00 97.2 73 10 97 143/70 12/19/16 15:00 73 I/O 12/19/16 12/19/16 12/19/16 12/20/16 12/20/16 12/20/16 07:00 15:00 23:00 07:00 15:00 23:00 Intake Total 240 ml 2354 ml 1202 ml Output Total 950 ml 1250 ml 1490 ml Balance -710 ml 1104 ml -288 ml Intake Oral 240 ml 0 ml 480 ml IV Total 2354 ml 722 ml Output Urine Total 950 ml 1000 ml 1240 ml Gastric Drainage Total 50 ml Chest Tube Drainage Total 200 ml 250 ml # Bowel Movements 0 0 Result Diagram: 12/20/1644012/20/16440 Objective Remarks GENERAL: Very pleasant middle-aged white male in no acute distress. HEENT: PERRLA, EOMI. No scleral icterus or conjunctival pallor. No lid lag or facial droop. CARDIOVASCULAR: Regular rate and rhythm. No obvious murmurs to auscultation. No chest tenderness to palpation. Sternal dressings in place. RESPIRATORY: No obvious rhonchi or wheezing. Clear to auscultation. Breath sounds equal bilaterally. GASTROINTESTINAL: Abdomen soft, non-tender, nondistended. BS normal. Guerra catheter with clear yellow urine MUSCULOSKELETAL: Extremities without clubbing, cyanosis, or edema. No obvious deformities. NEUROLOGICAL: Awake, alert and oriented x4. No focal neurologic deficits. Moving both upper and lower extremities spontaneously. 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 A/P Problem List: (1) NSTEMI (non-ST elevated myocardial infarction) ICD Code: I21.4 Status: Acute (2) Renal insufficiency ICD Code: N28.9 Status: Acute (3) Hypomagnesemia ICD Code: E83.42 Status: Acute (4) Leukocytosis ICD Code: D72.829 Status: Acute (5) HTN (hypertension) ICD Code: I10 Status: Acute (6) DM (diabetes mellitus) ICD Code: E11.9 Status: Acute Assessment and Plan This is a 71-year-old male presenting with chest pain NSTEMI status post CABG: Acute onset of chest pain, EKG changes, troponin max at 7. CXR negative. Patient underwent cardiac catheterization 12/17/16, showed severe three-vessel coronary artery disease, consult CT surgery. Patient preserved LV systolic function. Status post CABG 12/19/16. Continue aspirin, metoprolol and statin. Chest tube still in place, start diuresis tomorrow. Recheck BMP. Borderline diabetes-hemoglobin A1c 6.2, monitor. Metformin hold, sliding scale insulin for now with Levemir, titrate as needed. Atrial fibrillation-continue amiodarone drip, further management per cardiology. On metoprolol. Acute renal insufficiency-resolved with IVF, continue to hold lisinopril and metformin. Hypertension-currently controlled, hold lisinopril. Continue metoprolol. Leukocytosis-likely stress-induced, recheck CBC tomorrow. Leukocytosis-likely stress-induced, chest x-ray personally reviewed unremarkable. Urinalysis negative. Leukocytosis resolved. Hypothyroidism-TSH 6.2, free T3 and free T4 normal. DVT prophylaxis: Per surgery, wasn't heparin drip. Problem Qualifiers (1) HTN (hypertension): Qualified Code: I10 - Essential hypertension (2) DM (diabetes mellitus): Sahra Klein MD Dec 20, 2016 14:18
[2016-12-20] MEDS: INSULIN ASPART SUPPLEMENTAL SCALE SQ SCH ×3 (14:28→22:02)
[2016-12-20] MEDS: ATORVASTATIN 40 MG TAB PO SCH (22:00)
[2016-12-20] MEDS: SENNOSIDES 8.6 MG TAB PO SCH (22:01)
[2016-12-20] MEDS: METOPROLOL TARTRATE 25 MG TAB PO SCH (22:01)
[2016-12-20] MEDS: INSULIN DETEMIR 100 UNITS/ML VIAL SQ SCH (22:02)
[2016-12-21] VITALS (31 sets, daily range): BP systolic 102–139; BP diastolic 60–82; PULSE 69–156; RESP 18; TEMP 98.2–99.3; O2SAT 94–97
[2016-12-21] MEDS: oxyCODONE/ACETAMINOPHEN 5 MG/325 MG TAB PO PRN ×2 (02:22→08:34)
[2016-12-21] MEDS: INSULIN ASPART SUPPLEMENTAL SCALE SQ SCH ×5 (02:22→22:57)
[2016-12-21] MEDS: PANTOPRAZOLE SOD 40 MG DELAYED RELEASE TAB PO SCH (05:12)
[2016-12-21] MEDS: AMIODARONE 200 MG TAB PO SCH ×2 (05:12→14:00)
[2016-12-21 05:40] LABS: AUTOMATED NEUTROPHIL # 13.5 TH/MM3 (1.8-7.7); BASOPHIL % 0.2 % (0.0-2.0); EOSINOPHIL % 0.1 % (0.0-4.0); HEMATOCRIT 31.6 % (39.0-51.0); HEMO FLAGS DIFF FINAL; LYMPH % 10.4 % (9.0-44.0); LYMPHOCYTE # 1.8 TH/MM3 (1.0-4.8); MEAN CORPUSCULAR HEMOGLOBIN 29.6 PG (27.0-34.0); MEAN CORPUSCULAR HGB CONC 32.9 % (32.0-36.0); MONO % 11.1 % (0.0-8.0); NEUT % 78.2 % (16.0-70.0); PLATELET COUNT 208 TH/MM3 (150-450); RED BLOOD COUNT 3.51 MIL/MM3 (4.50-5.90); RED CELL DISTRIBUTION WIDTH 15.2 % (11.6-17.2); WHITE BLOOD COUNT 17.3 TH/MM3 (4.0-11.0)
[2016-12-21 05:53] LABS: BICARBONATE 27.1 MEQ/L (21.0-32.0); MAGNESIUM 1.9 MG/DL (1.5-2.5); POTASSIUM 4.5 MEQ/L (3.5-5.1)
[2016-12-21] MEDS ORDERED: MAGNESIUM SULFATE INJ 2 GM in SODIUM CHLORIDE 0.9% INJ 100 ML IV SCH (06:00)
[2016-12-21] MEDS: RESP: ALBUTEROL 2.5 MG/IPRATROPIUM 0.5 MG NEB (SCH) NEB (07:58)
[2016-12-21] MEDS ORDERED: MAGNESIUM SULFATE INJ 2 GM in SODIUM CHLORIDE 0.9% INJ 96 ML IV ONE (08:00)
[2016-12-21] MEDS: PREGABALIN 75 MG CAP PO SCH ×2 (08:21→22:01)
[2016-12-21] MEDS: SERTRALINE HCL 50 MG TAB PO SCH (08:21)
[2016-12-21] MEDS: MAGNESIUM HYDROXIDE SUSP 30 ML CUP PO SCH (08:22)
[2016-12-21] MEDS: ASPIRIN 81 MG CHEW TAB PO SCH (08:22)
[2016-12-21] MEDS: DOCUSATE SODIUM 100 MG CAP PO SCH ×2 (08:22→22:02)
[2016-12-21] MEDS: METOPROLOL TARTRATE 25 MG TAB PO SCH ×2 (08:22→22:01)
[2016-12-21] MEDS: POLYETHYLENE GLYCOL 17 GM PKG PO SCH (08:22)
[2016-12-21] MEDS: SODIUM CHLORIDE 0.9% FLUSH 5 ML FLUSH IV FLUSH SCH ×2 (08:22→22:04)
[2016-12-21] MEDS: INSULIN DETEMIR 100 UNITS/ML VIAL SQ SCH ×2 (08:23→22:00)
[2016-12-21] MEDS: MULTIVITAMINS/MINERALS THERAPEUTIC TAB PO SCH ×2 (08:28→08:33)
[2016-12-21] MEDS: NYSTAT/DIPHENHY/LIDO MOUTHWASH (Adult) 120ML SWISH-SWAL SCH ×4 (08:33→21:00)
[2016-12-21] MEDS ORDERED: AMIODARONE INJ 150 MG in DEXTROSE 5% IN WATER 100ML INJ 97 ML IV ONE ×2 (09:30)
[2016-12-21] MEDS ORDERED: INSULIN DETEMIR 100 UNITS/ML VIAL SQ SCH (10:30)
[2016-12-21] MEDS ORDERED: RESP: LEVALBUTEROL HYDROCHLORIDE 0.63 MG/3 ML NEB (PRN) NEB (10:30)
--- NOTE | 2016-12-21 10:38 | PD.CAR.PN ---
CVT Progress Note CVT: POD #: 2 Subjective/Hospital Course: 63/ male admitted with NSTEMI, , underwent Cardiac cath by Dr Acevedo, multi vessel disease with EF 60% PMH: HTN, HLP, depression , DM , ischemic optic neuropathy ( was seen by ophthalmology , Dr Verito Solorzano, ( control cardiac risk factors ) incidental finding of elevated TSH 6.20 normal T3 T4 ( subclinical hypothyroidism) surgery: 12/19 urgent CABG x 2, QUICK to LAD SVG to OM 1, EVH extubated after surgery, crystalloid 2000cc, 700 urine output 12/20 went into afib RVR last pm, given bolus of IV amiodarone , converted , then went back into afib RVR this am required additional bolus and IV gtt converted last in am , K+ and mag replaced PLT 84, will monitor transfer to stepdown unit 12/21 pt went back into afib RVR amiodarone gtt stopped last pm additional bolus given also mag replacement on BB low grade temp, and leukocytosis aggressive pulm toileting , dc cvc line ambulate and dc chest tube Objective: Vital Signs Date Time Temp Pulse Resp B/P Pulse Ox O2 Delivery O2 Flow Rate FiO2 12/21/16 09:21 18 12/21/16 09:21 18 12/21/16 07:59 94 Nasal Cannula 2.00 12/21/16 06:00 153 12/21/16 05:00 83 12/21/16 04:00 87 12/21/16 03:10 95 Nasal Cannula 2.00 12/21/16 03:09 99.3 81 18 139/80 95 12/21/16 03:00 81 12/21/16 02:00 80 12/21/16 01:00 75 12/21/16 00:00 79 12/21/16 00:00 95 Nasal Cannula 2.00 12/21/16 00:00 99.2 79 18 128/73 95 12/20/16 23:00 85 12/20/16 22:00 97 12/20/16 21:00 99 12/20/16 20:00 95 Nasal Cannula 2.00 12/20/16 20:00 99.8 97 20 125/72 95 12/20/16 20:00 86 12/20/16 20:00 Nasal Cannula 2.00 12/20/16 19:00 90 12/20/16 17:09 78 12/20/16 16:00 77 12/20/16 16:00 99.0 87 18 121/67 97 12/20/16 16:00 95 Nasal Cannula 2.00 12/20/16 15:00 81 12/20/16 14:00 74 12/20/16 13:00 96.4 73 20 121/67 99 12/20/16 13:00 72 12/20/16 11:00 70 12/20/16 11:00 70 12/20/16 11:00 99 Nasal Cannula 3.00 12/20/16 11:00 97.6 70 20 111/72 99 120/64 Labs: Laboratory Tests Test 12/21/16 04:45 White Blood Count 17.3 TH/MM3 (4.0-11.0) Red Blood Count 3.51 MIL/MM3 (4.50-5.90) Hemoglobin 10.4 GM/DL (13.0-17.0) Hematocrit 31.6 % (39.0-51.0) Mean Corpuscular Volume 90.0 FL (80.0-100.0) Mean Corpuscular Hemoglobin 29.6 PG (27.0-34.0) Mean Corpuscular Hemoglobin 32.9 % Concent (32.0-36.0) Red Cell Distribution Width 15.2 % (11.6-17.2) Platelet Count 208 TH/MM3 (150-450) Mean Platelet Volume 7.7 FL (7.0-11.0) Neutrophils (%) (Auto) 78.2 % (16.0-70.0) Lymphocytes (%) (Auto) 10.4 % (9.0-44.0) Monocytes (%) (Auto) 11.1 % (0.0-8.0) Eosinophils (%) (Auto) 0.1 % (0.0-4.0) Basophils (%) (Auto) 0.2 % (0.0-2.0) Neutrophils # (Auto) 13.5 TH/MM3 (1.8-7.7) Lymphocytes # (Auto) 1.8 TH/MM3 (1.0-4.8) Monocytes # (Auto) 1.9 TH/MM3 (0-0.9) Eosinophils # (Auto) 0.0 TH/MM3 (0-0.4) Basophils # (Auto) 0.0 TH/MM3 (0-0.2) CBC Comment DIFF FINAL Differential Comment Sodium Level 133 MEQ/L (136-145) Potassium Level 4.5 MEQ/L (3.5-5.1) Chloride Level 97 MEQ/L (98-107) Carbon Dioxide Level 27.1 MEQ/L (21.0-32.0) Anion Gap 9 MEQ/L (5-15) Blood Urea Nitrogen 19 MG/DL (7-18) Creatinine 1.39 MG/DL (0.60-1.30) Estimat Glomerular Filtration 51 ML/MIN (>89) Rate Random Glucose 205 MG/DL (74-106) Calcium Level 9.2 MG/DL (8.5-10.1) Magnesium Level 1.9 MG/DL (1.5-2.5) Result Diagram: 12/21/1644412/21/16444 Telemetry: afib> NSR (1) NSTEMI (non-ST elevated myocardial infarction) Plan: (2) S/P CABG x 2 Plan: ASA, statin , BB pulm toileting, nebs ezpap acapella + 3 kg, eval for diuresis replace electrolytes leukocytosis increasing, dc cvc line, and check UA encourage pulm toileting dc chest tubes (3) Optic nerve hemorrhage Plan: control cardiac risk factors (4) DM (diabetes mellitus) Plan: diabetic diet restart metformin increase levemir (5) HTN (hypertension) Plan: controlled, on BB (6) Afib Plan: on amiodarone / BB dex v score 3.2 > converted to NSR Problem Qualifiers (1) Optic nerve hemorrhage: Qualified Code: H47.023 - Optic nerve hemorrhage, bilateral (2) DM (diabetes mellitus): (3) HTN (hypertension): Qualified Code: I10 - Essential hypertension Tammie Mccall Dec 21, 2016 10:38
[2016-12-21] MEDS: metFORMIN HCL 500 MG TAB PO SCH ×2 (11:19→17:46)
[2016-12-21] MEDS ORDERED: DILTIAZEM INJ 125 MG in SODIUM CHLORIDE 0.9% INJ 100 ML IV SCH (11:30)
[2016-12-21] MEDS ORDERED: DILTIAZEM HCL 25 MG/5 ML VIAL IVP ONE (11:30)
--- NOTE | 2016-12-21 11:45 | HHI.PR ---
Subjective Remarks Follow-up CAD. Patient in RVR denies palpitations and shortness of breath. Discussed with CVT, start OAC cleared by ophthalmology history of ocular hemorrhage. Objective Vitals Vital Signs Date Time Temp Pulse Resp B/P Pulse Ox O2 Delivery O2 Flow Rate FiO2 12/21/16 09:21 18 12/21/16 09:21 18 12/21/16 07:59 94 Nasal Cannula 2.00 12/21/16 06:00 153 12/21/16 05:00 83 12/21/16 04:00 87 12/21/16 03:10 95 Nasal Cannula 2.00 12/21/16 03:09 99.3 81 18 139/80 95 12/21/16 03:00 81 12/21/16 02:00 80 12/21/16 01:00 75 12/21/16 00:00 79 12/21/16 00:00 95 Nasal Cannula 2.00 12/21/16 00:00 99.2 79 18 128/73 95 12/20/16 23:00 85 12/20/16 22:00 97 12/20/16 21:00 99 12/20/16 20:00 95 Nasal Cannula 2.00 12/20/16 20:00 99.8 97 20 125/72 95 12/20/16 20:00 86 12/20/16 20:00 Nasal Cannula 2.00 12/20/16 19:00 90 12/20/16 17:09 78 12/20/16 16:00 77 12/20/16 16:00 99.0 87 18 121/67 97 12/20/16 16:00 95 Nasal Cannula 2.00 12/20/16 15:00 81 12/20/16 14:00 74 12/20/16 13:00 96.4 73 20 121/67 99 12/20/16 13:00 72 I/O 12/20/16 12/20/16 12/20/16 12/21/16 12/21/16 12/21/16 07:00 15:00 23:00 07:00 15:00 23:00 Intake Total 1202 ml 714 ml 530 ml Output Total 1490 ml 450 ml 1470 ml Balance -288 ml 264 ml -940 ml Intake Oral 480 ml 600 ml 480 ml IV Total 722 ml 114 ml 50 ml Output Urine Total 1240 ml 300 ml 1400 ml Chest Tube Drainage Total 250 ml 150 ml 70 ml # Bowel Movements 0 0 Result Diagram: 12/21/16 0445 12/21/16 0445 Imaging Last Impressions Chest X-Ray 12/20/16 0500 Signed Impressions: Service Date/Time: December 03:45 - CONCLUSION: 1. Cardiomegaly 2. Resolving pulmonary vascular congestion. 3. There is no evidence of pneumothorax. Maxwell Santos MD Lower Extremity Ultrasound 12/17/16 0000 Signed Impressions: Service Date/Time: Saturday, December 17, 2016 18:38 - CONCLUSION: Venous mapping as described above. Jarvis Michael MD Objective Remarks GENERAL: Very pleasant middle-aged white male in no acute distress. HEENT: PERRLA, EOMI. No scleral icterus or conjunctival pallor. No lid lag or facial droop. CARDIOVASCULAR: Tachycardic. Sternal dressings in place. Chest tube output RESPIRATORY: No obvious rhonchi or wheezing. Clear to auscultation. Breath sounds equal bilaterally. GASTROINTESTINAL: Abdomen soft, non-tender, nondistended. BS normal. MUSCULOSKELETAL: Extremities without clubbing, cyanosis, or edema. No obvious deformities. NEUROLOGICAL: Awake, alert and oriented x4. No focal neurologic deficits. Moving both upper and lower extremities spontaneously. Procedures BROTH MIXER 12/17/16 Severe three vessel coronary artery disease CABG A/P Problem List: (1) NSTEMI (non-ST elevated myocardial infarction) ICD Code: I21.4 Status: Acute (2) Renal insufficiency ICD Code: N28.9 Status: Acute (3) Hypomagnesemia ICD Code: E83.42 Status: Acute (4) Leukocytosis ICD Code: D72.829 Status: Acute (5) HTN (hypertension) ICD Code: I10 Status: Chronic (6) DM (diabetes mellitus) ICD Code: E11.9 Status: Chronic Assessment and Plan This is a 71-year-old male presenting with chest pain NSTEMI status post CABG: Acute onset of chest pain, EKG changes, troponin max at 7. CXR negative. Patient underwent cardiac catheterization 12/17/16, showed severe three-vessel coronary artery disease, consult CT surgery. Patient preserved LV systolic function. Status post CABG 12/19/16. Continue aspirin, metoprolol and statin. Stable postoperative care per cardio vascular surgery Diabetes-hemoglobin A1c 6.2, monitor. Hyperglycemic restart Metformin and increase Levemir continue sliding scale insulin Atrial fibrillation with RVR. Cardizem drip, by mouth amiodarone, metoprolol and start OAC. [id number] score of 2 pt agrees with anticoagulation aware of hcx of ocular hge Acute kidney injury. Creatinine slightly up. Avoid nephrotoxins. Repeat BMP and magnesium in the morning Hypertension-currently controlled, hold lisinopril. Continue metoprolol. Leukocytosis-likely stress-induced, chest x-ray personally reviewed unremarkable. Urinalysis negative. Hypothyroidism-TSH 6.2, free T3 and free T4 normal. DVT prophylaxis: OAC Problem Qualifiers (1) HTN (hypertension): Qualified Code: I10 - Essential hypertension (2) DM (diabetes mellitus): Jonny Montgomery MD Dec 21, 2016 11:45
[2016-12-21] MEDS: AMIODARONE INJ 450 MG in DEXTROSE 5% IN WATE(EXCEL) INJ 241 ML IV SCH ×2 (13:46)
--- NOTE | 2016-12-21 13:50 | PD.CARD.PN ---
Subjective Subjective Remarks no complaints s/p cabg now in afib with rvr Objective Medications Current Medications Medications (Trade) Dose Ordered Sig/Katina Route Start Time Stop Time Status Last Admin (Dulcolax Supp) 10 mg DAILY PRN [place] 12/16/16 01:15 (Tylenol) 650 mg Q6H PRN PO 12/16/16 01:15 (Lipitor) 40 mg HS PO 12/16/16 21:00 12/20/16 22:00 (Lyrica) 150 mg BID PO 12/16/16 09:00 12/21/16 08:21 (Zoloft) 50 mg DAILY PO 12/16/16 09:00 12/21/16 08:21 (Pill Splitter) 1 ea UNSCH PRN OTHER 12/16/16 01:30 (Chloraseptic [place]) 2 spray Q2H PRN OROPHARYNG 12/18/16 16:00 12/18/16 20:56 (Magic Mouthwash Adult Liq) 10 ml QID SWISH-SWAL 12/18/16 18:00 12/21/16 08:33 (NS Flush) 2 ml BID IV FLUSH 12/19/16 21:00 12/21/16 08:22 IV Flush 2 ml 2 ml UNSCH PRN IV FLUSH 12/19/16 12:00 (Lr 1000 ml Inj) 500 ml @ 500 mls/hr Q1H PRN IV 12/19/16 11:52 12/19/16 13:03 (Aspirin Chew) 81 mg DAILY PO 12/20/16 09:00 12/21/16 08:22 (Protonix) 40 mg DAILY@06 PO 12/20/16 06:00 12/21/16 05:12 (Tylenol) 650 mg Q4H PRN PO 12/19/16 12:00 (Percocet 5-325 Mg) 1 tab Q3H PRN PO 12/19/16 12:00 12/21/16 08:34 (Zofran Inj) 4 mg Q6H PRN IV PUSH 12/19/16 12:00 12/20/16 14:28 Metoprolol Tartrate 2.5 mg 2.5 mg Q1H PRN IV PUSH 12/19/16 12:00 Magnesium Sulfate 2 gm/Sodium Chloride 104 ml @ 100 mls/hr UNSCH PRN IV 12/19/16 12:00 12/21/16 06:20 Magnesium Sulfate 2 gm/Sodium Chloride 104 ml @ 50 mls/hr UNSCH PRN IV 12/19/16 12:00 12/20/16 08:05 (Cordarone Inj/ D5W ([place]) Inj) 250 ml @ 0 mls/hr CONTINUOUS IV 12/20/16 08:30 Hold 12/21/16 13:46 (Cordarone) 400 mg Q8H PO 12/20/16 14:00 12/21/16 05:12 (Lopressor) 12.5 mg Q12HR PO 12/20/16 21:00 12/21/16 08:22 (Colace) 100 mg BID PO 12/20/16 11:15 12/21/16 08:22 (Theragran M Tab) 1 tab DAILY PO 12/21/16 09:00 12/21/16 08:33 (Milk Of Magnesia Liq) 30 ml DAILY PO 12/21/16 09:00 12/21/16 08:22 (Miralax) 17 gm DAILY PO 12/21/16 09:00 12/21/16 08:22 (Senokot) 8.6 mg HS PO 12/20/16 21:00 12/20/16 22:01 (Fleets Enema (Adult)) 133 ml UNSCH PRN RECTAL 12/20/16 11:15 (NovoLOG SUPPLEMENTAL SCALE) 1 02,06,10,14,18,22 SQ 12/20/16 14:00 12/21/16 13:59 12/21/16 10:30 (D50w (Vial) Inj) 25 ml UNSCH PRN IV 12/20/16 11:15 (Glucagon Inj) 1 mg UNSCH PRN OTHER 12/20/16 11:15 (Glucophage) 1,000 mg BIDPC PO 12/21/16 11:00 12/21/16 11:19 (Levemir Inj) 10 units Q12HR SQ 12/21/16 21:00 Insulin Aspart 1 1 ACHS SQ 12/21/16 16:00 (Cardizem Inj/NS Inj) 125 ml @ 0 mls/hr TITRATE IV 12/21/16 11:30 12/21/16 12:12 Vital Signs / I&O Vital Signs Date Time Temp Pulse Resp B/P Pulse Ox O2 Delivery O2 Flow Rate FiO2 12/21/16 09:21 18 12/21/16 09:21 18 12/21/16 07:59 94 Nasal Cannula 2.00 12/21/16 06:00 153 12/21/16 05:00 83 12/21/16 04:00 87 12/21/16 03:10 95 Nasal Cannula 2.00 12/21/16 03:09 99.3 81 18 139/80 95 12/21/16 03:00 81 12/21/16 02:00 80 12/21/16 01:00 75 12/21/16 00:00 79 12/21/16 00:00 95 Nasal Cannula 2.00 12/21/16 00:00 99.2 79 18 128/73 95 12/20/16 23:00 85 12/20/16 22:00 97 12/20/16 21:00 99 12/20/16 20:00 95 Nasal Cannula 2.00 12/20/16 20:00 99.8 97 20 125/72 95 12/20/16 20:00 86 12/20/16 20:00 Nasal Cannula 2.00 12/20/16 19:00 90 12/20/16 17:09 78 12/20/16 16:00 77 12/20/16 16:00 99.0 87 18 121/67 97 12/20/16 16:00 95 Nasal Cannula 2.00 12/20/16 15:00 81 12/20/16 14:00 74 I/O 12/20/16 12/20/16 12/20/16 12/21/16 12/21/16 12/21/16 07:00 15:00 23:00 07:00 15:00 23:00 Intake Total 1202 ml 714 ml 530 ml Output Total 1490 ml 450 ml 1470 ml Balance -288 ml 264 ml -940 ml Intake Oral 480 ml 600 ml 480 ml IV Total 722 ml 114 ml 50 ml Output Urine Total 1240 ml 300 ml 1400 ml Chest Tube Drainage Total 250 ml 150 ml 70 ml # Bowel Movements 0 0 Physical Exam GENERAL: Well-nourished, well-developed patient. SKIN: Warm and dry. HEAD: Normocephalic. EYES: No scleral icterus. No injection or drainage. NECK: Supple, trachea midline. No JVD or lymphadenopathy. CARDIOVASCULAR: Irr Irr without murmurs, gallops, or rubs. RESPIRATORY: Breath sounds equal bilaterally. No accessory muscle use. GASTROINTESTINAL: Abdomen soft, non-tender, nondistended. EXTREMITIES: No cyanosis, or edema. NEUROLOGICAL: Awake, alert, and oriented x 3. Non-focal. Laboratory Laboratory Tests Test 12/21/16 04:45 White Blood Count 17.3 TH/MM3 Red Blood Count 3.51 MIL/MM3 Hemoglobin 10.4 GM/DL Hematocrit 31.6 % Mean Corpuscular Volume 90.0 FL Mean Corpuscular Hemoglobin 29.6 PG Mean Corpuscular Hemoglobin 32.9 % Concent Red Cell Distribution Width 15.2 % Platelet Count 208 TH/MM3 Mean Platelet Volume 7.7 FL Neutrophils (%) (Auto) 78.2 % Lymphocytes (%) (Auto) 10.4 % Monocytes (%) (Auto) 11.1 % Eosinophils (%) (Auto) 0.1 % Basophils (%) (Auto) 0.2 % Neutrophils # (Auto) 13.5 TH/MM3 Lymphocytes # (Auto) 1.8 TH/MM3 Monocytes # (Auto) 1.9 TH/MM3 Eosinophils # (Auto) 0.0 TH/MM3 Basophils # (Auto) 0.0 TH/MM3 CBC Comment DIFF FINAL Differential Comment Sodium Level 133 MEQ/L Potassium Level 4.5 MEQ/L Chloride Level 97 MEQ/L Carbon Dioxide Level 27.1 MEQ/L Anion Gap 9 MEQ/L Blood Urea Nitrogen 19 MG/DL Creatinine 1.39 MG/DL Estimat Glomerular Filtration 51 ML/MIN Rate Random Glucose 205 MG/DL Calcium Level 9.2 MG/DL Magnesium Level 1.9 MG/DL Imaging Last Impressions Chest X-Ray 12/20/16 0500 Signed Impressions: Service Date/Time: December 03:45 - CONCLUSION: 1. Cardiomegaly 2. Resolving pulmonary vascular congestion. 3. There is no evidence of pneumothorax. Maxwell Santos MD Lower Extremity Ultrasound 12/17/16 0000 Signed Impressions: Service Date/Time: Saturday, December 17, 2016 18:38 - CONCLUSION: Venous mapping as described above. Jarvis Michael MD Assessment and Plan Problem List: (1) S/P CABG x 2 Assessment and Plan: Afib with RVR Cont Cardizem drip Start Amio drip Start OAC (2) NSTEMI (non-ST elevated myocardial infarction) (3) Optic nerve hemorrhage (4) Afib (5) DM (diabetes mellitus) (6) HTN (hypertension) Problem Qualifiers (1) Optic nerve hemorrhage: Qualified Code: H47.023 - Optic nerve hemorrhage, bilateral (2) Afib: Qualified Code: I48.0 - Paroxysmal atrial fibrillation (3) DM (diabetes mellitus): (4) HTN (hypertension): Qualified Code: I10 - Essential hypertension Jose Gale MD Dec 21, 2016 13:50
[2016-12-21] MEDS ORDERED: AMIODARONE INJ 450 MG in DEXTROSE 5% IN WATE(EXCEL) INJ 241 ML IV SCH ×2 (14:30)
[2016-12-21] MEDS: APIXABAN 5 MG TABLET PO SCH (16:25)
[2016-12-21] MEDS: MAGNESIUM SULFATE 1 GM PREMIX 100 ML IV SCH ×2 (17:10→17:47)
[2016-12-21] MEDS ORDERED: APIXABAN 5 MG TABLET PO SCH (21:00)
[2016-12-21] MEDS: ATORVASTATIN 40 MG TAB PO SCH (22:00)
[2016-12-21] MEDS: SENNOSIDES 8.6 MG TAB PO SCH (22:56)
[2016-12-22] VITALS (26 sets, daily range): BP systolic 109–138; BP diastolic 56–72; PULSE 66–91; RESP 18–20; TEMP 98–99.2; O2SAT 92–99
--- NOTE | 2016-12-22 04:20 | RADRPT ---
EXAM DATE/TIME: 12/22/2016 03:26 [facility] COMPARISON: CHEST SINGLE AP, December 20, 2016, 3:45. INDICATIONS : Shortness of breath, possible pulmonary disease. MEDICAL HISTORY : Hypertension. Hypercholesterolemia. Renal calculi. SURGICAL HISTORY : Total knee replacement, left. Total knee replacement, right. CABG. ENCOUNTER: Subsequent ACUITY: 3 days PAIN SCORE: 6/10 LOCATION: Bilateral chest FINDINGS: The cardiac silhouette is normal in transverse diameter. Median sternotomy wires are present. There i s subsegmental atelectasis in the both bases. A small left sided effusion is present. CONCLUSION: 1. Cardiomegaly with bibasilar atelectasis. 2. Small left effusion new in comparison with prior study Maxwell Santos MD on December 22, 2016 at 4:18 Board Certified Radiologist. This report was verified electronically.
[2016-12-22] MEDS: APIXABAN 5 MG TABLET PO SCH ×2 (05:39→16:19)
[2016-12-22] MEDS: PANTOPRAZOLE SOD 40 MG DELAYED RELEASE TAB PO SCH (05:39)
[2016-12-22 06:03] LABS: BASOPHIL % 0.2 % (0.0-2.0); EOSINOPHIL % 0.1 % (0.0-4.0); HEMATOCRIT 28.9 % (39.0-51.0); HEMO FLAGS DIFF FINAL; LYMPHOCYTE # 1.9 TH/MM3 (1.0-4.8); MEAN CORPUSCULAR HEMOGLOBIN 29.5 PG (27.0-34.0); MEAN CORPUSCULAR HGB CONC 32.7 % (32.0-36.0); MONO % 11.2 % (0.0-8.0); NEUT % 77.5 % (16.0-70.0); PLATELET COUNT 188 TH/MM3 (150-450); RED BLOOD COUNT 3.21 MIL/MM3 (4.50-5.90); RED CELL DISTRIBUTION WIDTH 15.3 % (11.6-17.2); WHITE BLOOD COUNT 16.8 TH/MM3 (4.0-11.0)
[2016-12-22 06:25] LABS: BICARBONATE 26.9 MEQ/L (21.0-32.0); MAGNESIUM 2.5 MG/DL (1.5-2.5)
[2016-12-22] MEDS: INSULIN ASPART SUPPLEMENTAL SCALE SQ SCH ×4 (06:34→21:00)
[2016-12-22 07:07] LABS: POTASSIUM 5.7 MEQ/L (3.5-5.1)
[2016-12-22] MEDS: metFORMIN HCL 500 MG TAB PO SCH ×2 (09:29→18:00)
[2016-12-22] MEDS: PREGABALIN 75 MG CAP PO SCH ×2 (09:30→21:46)
[2016-12-22] MEDS: ASPIRIN 81 MG CHEW TAB PO SCH (09:31)
[2016-12-22] MEDS: MULTIVITAMINS/MINERALS THERAPEUTIC TAB PO SCH (09:31)
[2016-12-22] MEDS: SERTRALINE HCL 50 MG TAB PO SCH (09:32)
[2016-12-22] MEDS: METOPROLOL TARTRATE 25 MG TAB PO SCH ×2 (09:32→21:47)
[2016-12-22] MEDS: DOCUSATE SODIUM 100 MG CAP PO SCH ×2 (09:32→21:46)
[2016-12-22] MEDS: MAGNESIUM HYDROXIDE SUSP 30 ML CUP PO SCH (09:33)
[2016-12-22] MEDS: INSULIN DETEMIR 100 UNITS/ML VIAL SQ SCH ×2 (09:34→21:45)
[2016-12-22] MEDS: POLYETHYLENE GLYCOL 17 GM PKG PO SCH (09:34)
[2016-12-22] MEDS: SODIUM CHLORIDE 0.9% FLUSH 5 ML FLUSH IV FLUSH SCH ×2 (09:43→21:47)
[2016-12-22] MEDS: NYSTAT/DIPHENHY/LIDO MOUTHWASH (Adult) 120ML SWISH-SWAL SCH ×4 (09:43→21:00)
[2016-12-22] MEDS: oxyCODONE/ACETAMINOPHEN 5 MG/325 MG TAB PO PRN ×2 (09:45→16:19)
--- NOTE | 2016-12-22 10:15 | PD.CAR.PN ---
CVT Progress Note Subjective/Hospital Course: 63/ male admitted with NSTEMI, , underwent Cardiac cath by Dr Acevedo, multi vessel disease with EF 60% PMH: HTN, HLP, depression , DM , ischemic optic neuropathy ( was seen by ophthalmology , Dr Verito Solorzano, ( control cardiac risk factors ) incidental finding of elevated TSH 6.20 normal T3 T4 ( subclinical hypothyroidism) surgery: 12/19 urgent CABG x 2, QUICK to LAD SVG to OM 1, EVH extubated after surgery, crystalloid 2000cc, 700 urine output 12/20 went into afib RVR last pm, given bolus of IV amiodarone , converted , then went back into afib RVR this am required additional bolus and IV gtt converted last in am , K+ and mag replaced PLT 84, will monitor transfer to stepdown unit 12/21 pt went back into afib RVR amiodarone gtt stopped last pm additional bolus given also mag replacement on BB low grade temp, and leukocytosis aggressive pulm toileting , dc cvc line ambulate and dc chest tube 12/22/16 In sinus rhythm. c/o some indigestion Objective: Vital Signs Date Time Temp Pulse Resp B/P Pulse Ox O2 Delivery O2 Flow Rate FiO2 12/22/16 07:55 99 Nasal Cannula 3.00 12/22/16 07:55 99 Nasal Cannula 2.00 12/22/16 04:00 98 2.00 12/22/16 04:00 67 12/22/16 03:00 68 12/22/16 02:00 69 12/22/16 01:00 67 12/22/16 01:00 109/56 12/22/16 01:00 97 Nasal Cannula 2.00 12/22/16 00:38 98.3 73 18 121/68 96 12/22/16 00:00 66 12/21/16 23:08 114 18 117/75 97 12/21/16 23:00 121 12/21/16 22:00 141 12/21/16 22:00 118/82 12/21/16 22:00 96 Nasal Cannula 2.00 12/21/16 21:00 133 12/21/16 20:00 98.4 77 18 134/65 95 12/21/16 20:00 96 Nasal Cannula 2.00 12/21/16 20:00 139 12/21/16 18:00 136 12/21/16 17:00 125 12/21/16 15:50 81 12/21/16 15:00 94 Nasal Cannula 2.00 12/21/16 15:00 132 12/21/16 15:00 98.9 143 18 102/65 94 12/21/16 14:00 69 12/21/16 14:00 120/64 12/21/16 13:00 117/60 12/21/16 13:00 128 12/21/16 12:45 113/79 12/21/16 12:30 115/78 12/21/16 12:15 105/65 12/21/16 12:04 132 12/21/16 12:00 98.2 133 18 113/79 96 12/21/16 11:00 79 12/21/16 11:00 96 Nasal Cannula 2.00 Labs: Laboratory Tests Test 12/22/16 05:27 White Blood Count 16.8 TH/MM3 (4.0-11.0) Red Blood Count 3.21 MIL/MM3 (4.50-5.90) Hemoglobin 9.5 GM/DL (13.0-17.0) Hematocrit 28.9 % (39.0-51.0) Mean Corpuscular Volume 90.0 FL (80.0-100.0) Mean Corpuscular Hemoglobin 29.5 PG (27.0-34.0) Mean Corpuscular Hemoglobin 32.7 % Concent (32.0-36.0) Red Cell Distribution Width 15.3 % (11.6-17.2) Platelet Count 188 TH/MM3 (150-450) Mean Platelet Volume 8.1 FL (7.0-11.0) Neutrophils (%) (Auto) 77.5 % (16.0-70.0) Lymphocytes (%) (Auto) 11.0 % (9.0-44.0) Monocytes (%) (Auto) 11.2 % (0.0-8.0) Eosinophils (%) (Auto) 0.1 % (0.0-4.0) Basophils (%) (Auto) 0.2 % (0.0-2.0) Neutrophils # (Auto) 13.0 TH/MM3 (1.8-7.7) Lymphocytes # (Auto) 1.9 TH/MM3 (1.0-4.8) Monocytes # (Auto) 1.9 TH/MM3 (0-0.9) Eosinophils # (Auto) 0.0 TH/MM3 (0-0.4) Basophils # (Auto) 0.0 TH/MM3 (0-0.2) CBC Comment DIFF FINAL Differential Comment Sodium Level 129 MEQ/L (136-145) Potassium Level 5.7 MEQ/L (3.5-5.1) Chloride Level 96 MEQ/L (98-107) Carbon Dioxide Level 26.9 MEQ/L (21.0-32.0) Anion Gap 6 MEQ/L (5-15) Blood Urea Nitrogen 32 MG/DL (7-18) Creatinine 1.33 MG/DL (0.60-1.30) Estimat Glomerular Filtration 53 ML/MIN (>89) Rate Random Glucose 190 MG/DL (74-106) Calcium Level 8.9 MG/DL (8.5-10.1) Magnesium Level 2.5 MG/DL (1.5-2.5) Result Diagram: 12/22/1652612/22/16526 Imaging: Last 24 hours Impressions Chest X-Ray 12/22/16 06 Signed Impressions: Service Date/Time: Thursday, December 22, 2016 03:26 - CONCLUSION: 1. Cardiomegaly with bibasilar atelectasis. 2. Small left effusion new in comparison with prior study Maxwell Santos MD Cardiovascular: RRR Telemetry: NSR Pulmonary: Decreased BS bilat GI/: Decreased BS Incision: dry and intact Plan: Encourage ambulation D/C amio and cardizem drips Restart PO amiodarone Encourage PO intake, ambulation x 6 monitor glucose to keep <120, > 60 Increase beta edgardo dose Reglan for promotility. (1) S/P CABG x 2 Plan: Afib with RVR Cont Cardizem drip Start Amio drip Start OAC (2) NSTEMI (non-ST elevated myocardial infarction) (3) Optic nerve hemorrhage (4) Afib (5) DM (diabetes mellitus) (6) HTN (hypertension) Problem Qualifiers (1) Optic nerve hemorrhage: Qualified Code: H47.023 - Optic nerve hemorrhage, bilateral (2) Afib: Qualified Code: I48.0 - Paroxysmal atrial fibrillation (3) DM (diabetes mellitus): (4) HTN (hypertension): Qualified Code: I10 - Essential hypertension Liana Granados MD Dec 22, 2016 10:15
[2016-12-22] MEDS: AMIODARONE 200 MG TAB PO SCH ×2 (11:05→21:46)
[2016-12-22] MEDS: METOCLOPRAMIDE HCL 10 MG/2 ML VIAL IV PUSH SCH ×2 (13:48→21:43)
--- NOTE | 2016-12-22 13:54 | HHI.PR ---
Subjective Remarks Feeling ok Objective Vital Signs Date Time Temp Pulse Resp B/P Pulse Ox O2 Delivery O2 Flow Rate FiO2 12/22/16 13:00 74 12/22/16 12:00 69 12/22/16 11:00 98.0 68 20 126/68 95 12/22/16 11:00 68 12/22/16 11:00 94 Room Air 12/22/16 10:00 79 12/22/16 09:15 99.1 75 18 114/61 98 Arterial Line 12/22/16 09:15 93 Nasal Cannula 2.00 12/22/16 09:00 90 12/22/16 08:00 79 12/22/16 07:55 99 Nasal Cannula 3.00 12/22/16 07:55 99 Nasal Cannula 2.00 12/22/16 07:00 79 12/22/16 04:00 98 2.00 12/22/16 04:00 67 12/22/16 03:00 68 12/22/16 02:00 69 12/22/16 01:00 67 12/22/16 01:00 109/56 12/22/16 01:00 97 Nasal Cannula 2.00 12/22/16 00:38 98.3 73 18 121/68 96 12/22/16 00:00 66 12/21/16 23:08 114 18 117/75 97 12/21/16 23:00 121 12/21/16 22:00 141 12/21/16 22:00 118/82 12/21/16 22:00 96 Nasal Cannula 2.00 12/21/16 21:00 133 12/21/16 20:00 98.4 77 18 134/65 95 12/21/16 20:00 96 Nasal Cannula 2.00 12/21/16 20:00 139 12/21/16 18:00 136 12/21/16 17:00 125 12/21/16 15:50 81 12/21/16 15:00 94 Nasal Cannula 2.00 12/21/16 15:00 132 12/21/16 15:00 98.9 143 18 102/65 94 12/21/16 14:00 69 12/21/16 14:00 120/64 I/O 12/21/16 12/21/16 12/21/16 12/22/16 12/22/16 12/22/16 07:00 15:00 23:00 07:00 15:00 23:00 Intake Total 530 ml 240 ml 340 ml Output Total 1470 ml 700 ml 550 ml Balance -940 ml -460 ml -210 ml Intake Oral 480 ml 240 ml 120 ml IV Total 50 ml 220 ml Output Urine Total 1400 ml 700 ml 550 ml Chest Tube Drainage Total 70 ml # Bowel Movements 0 0 Result Diagram: 12/22/1652612/22/16526 Imaging Alert, fully oriented, out of bed Lungs: ventilated Heart: S1, S2 regular, no gallop, no rub Abdomen: soft, no mass Ext: no edema Last Impressions Chest X-Ray 12/22/16 0600 Signed Impressions: Service Date/Time: Thursday, December 22, 2016 03:26 - CONCLUSION: 1. Cardiomegaly with bibasilar atelectasis. 2. Small left effusion new in comparison with prior study Maxwell Santos MD Lower Extremity Ultrasound 12/17/16 0000 Signed Impressions: Service Date/Time: Saturday, December 17, 2016 18:38 - CONCLUSION: Venous mapping as described above. Jarvis Michael MD Current Medications Medications (Trade) Dose Ordered Sig/Katina Route Start Time Stop Time Status Last Admin (Dulcolax Supp) 10 mg DAILY PRN GA 12/16/16 01:15 (Tylenol) 650 mg Q6H PRN PO 12/16/16 01:15 (Lipitor) 40 mg HS PO 12/16/16 21:00 12/21/16 22:00 (Lyrica) 150 mg BID PO 12/16/16 09:00 12/22/16 09:30 (Zoloft) 50 mg DAILY PO 12/16/16 09:00 12/22/16 09:32 (Pill Splitter) 1 ea UNSCH PRN OTHER 12/16/16 01:30 (Chloraseptic Quin[place]) 2 spray Q2H PRN OROPHARYNG 12/18/16 16:00 12/18/16 20:56 (Magic Mouthwash Adult Liq) 10 ml QID SWISH-SWAL 12/18/16 18:00 12/22/16 13:45 (NS Flush) 2 ml BID IV FLUSH 12/19/16 21:00 12/22/16 09:43 IV Flush 2 ml 2 ml UNSCH PRN IV FLUSH 2/15/17 12:00 (Lr 1000 ml Inj) 500 ml @ 500 mls/hr Q1H PRN IV 12/19/16 11:52 12/19/16 13:03 (Aspirin Chew) 81 mg DAILY PO 12/20/16 09:00 12/22/16 09:31 (Protonix) 40 mg DAILY@06 PO 12/20/16 06:00 12/22/16 05:39 (Tylenol) 650 mg Q4H PRN PO 12/19/16 12:00 (Percocet 5-325 Mg) 1 tab Q3H PRN PO 12/19/16 12:00 12/22/16 09:45 (Zofran Inj) 4 mg Q6H PRN IV PUSH 12/19/16 12:00 12/20/16 14:28 Metoprolol Tartrate 2.5 mg 2.5 mg Q1H PRN IV PUSH 12/19/16 12:00 Magnesium Sulfate 2 gm/Sodium Chloride 104 ml @ 100 mls/hr UNSCH PRN IV 12/19/16 12:00 12/21/16 06:20 (Magnesium Sulfate Inj/NS Inj) 104 ml @ 50 mls/hr UNSCH PRN IV 12/19/16 12:00 12/20/16 08:05 (Cordarone) 400 mg Q8H PO 12/20/16 14:00 Hold 12/21/16 05:12 (Colace) 100 mg BID PO 12/20/16 11:15 12/22/16 09:32 (Theragran M Tab) 1 tab DAILY PO 12/21/16 09:00 12/22/16 09:31 (Milk Of Magnesia Liq) 30 ml DAILY PO 12/21/16 09:00 12/22/16 09:33 (Miralax) 17 gm DAILY PO 12/21/16 09:00 12/22/16 09:34 (Senokot) 8.6 mg HS PO 12/20/16 21:00 12/21/16 22:56 (Fleets Enema (Adult)) 133 ml UNSCH PRN RECTAL 12/20/16 11:15 (D50w (Vial) Inj) 25 ml UNSCH PRN IV 12/20/16 11:15 (Glucagon Inj) 1 mg UNSCH PRN OTHER 12/20/16 11:15 (Glucophage) 1,000 mg BIDPC PO 12/21/16 11:00 12/22/16 09:29 (Levemir Inj) 10 units Q12HR SQ 12/21/16 21:00 12/22/16 09:34 Insulin Aspart 1 1 ACHS SQ 12/21/16 16:00 12/22/16 11:05 (Cardizem Inj/NS Inj) 125 ml @ 0 mls/hr TITRATE IV 12/21/16 11:30 12/21/16 12:12 (Eliquis) 5 mg Q12H PO 12/21/16 16:00 12/22/16 05:39 (Lopressor) 25 mg Q12HR PO 12/22/16 21:00 (Cordarone) 400 mg Q12HR PO 12/22/16 10:15 12/22/16 11:05 (Reglan Inj) 10 mg Q8HR IV PUSH 12/22/16 14:00 Current Medications Medications (Trade) Dose Ordered Sig/Katina Route Start Time Stop Time Status Last Admin (Dulcolax Supp) 10 mg DAILY PRN GA 12/16/16 01:15 (Tylenol) 650 mg Q6H PRN PO 12/16/16 01:15 (Lipitor) 40 mg HS PO 12/16/16 21:00 12/21/16 22:00 (Lyrica) 150 mg BID PO 12/16/16 09:00 12/22/16 09:30 (Zoloft) 50 mg DAILY PO 12/16/16 09:00 12/22/16 09:32 (Pill Splitter) 1 ea UNSCH PRN OTHER 12/16/16 01:30 (Chloraseptic Quin[place]) 2 spray Q2H PRN OROPHARYNG 12/18/16 16:00 12/18/16 20:56 (Magic Mouthwash Adult Liq) 10 ml QID SWISH-SWAL 12/18/16 18:00 12/22/16 13:45 (NS Flush) 2 ml BID IV FLUSH 12/19/16 21:00 12/22/16 09:43 IV Flush 2 ml 2 ml UNSCH PRN IV FLUSH 12/19/16 12:00 (Lr 1000 ml Inj) 500 ml @ 500 mls/hr Q1H PRN IV 12/19/16 11:52 12/19/16 13:03 (Aspirin Chew) 81 mg DAILY PO 12/20/16 09:00 12/22/16 09:31 (Protonix) 40 mg DAILY@06 PO 12/20/16 06:00 12/22/16 05:39 (Tylenol) 650 mg Q4H PRN PO 12/19/16 12:00 (Percocet 5-325 Mg) 1 tab Q3H PRN PO 12/19/16 12:00 12/22/16 09:45 (Zofran Inj) 4 mg Q6H PRN IV PUSH 12/19/16 12:00 12/20/16 14:28 Metoprolol Tartrate 2.5 mg 2.5 mg Q1H PRN IV PUSH 12/19/16 12:00 Magnesium Sulfate 2 gm/Sodium Chloride 104 ml @ 100 mls/hr UNSCH PRN IV 12/19/16 12:00 12/21/16 06:20 (Magnesium Sulfate Inj/NS Inj) 104 ml @ 50 mls/hr UNSCH PRN IV 12/19/16 12:00 12/20/16 08:05 (Cordarone) 400 mg Q8H PO 12/20/16 14:00 Hold 12/21/16 05:12 (Colace) 100 mg BID PO 12/20/16 11:15 12/22/16 09:32 (Theragran M Tab) 1 tab DAILY PO 12/21/16 09:00 12/22/16 09:31 (Milk Of Magnesia Liq) 30 ml DAILY PO 12/21/16 09:00 12/22/16 09:33 (Miralax) 17 gm DAILY PO 12/21/16 09:00 12/22/16 09:34 (Senokot) 8.6 mg HS PO 12/20/16 21:00 12/21/16 22:56 (Fleets Enema (Adult)) 133 ml UNSCH PRN RECTAL 12/20/16 11:15 (D50w (Vial) Inj) 25 ml UNSCH PRN IV 12/20/16 11:15 (Glucagon Inj) 1 mg UNSCH PRN OTHER 12/20/16 11:15 (Glucophage) 1,000 mg BIDPC PO 12/21/16 11:00 12/22/16 09:29 (Levemir Inj) 10 units Q12HR SQ 12/21/16 21:00 12/22/16 09:34 Insulin Aspart 1 1 ACHS SQ 12/21/16 16:00 12/22/16 11:05 (Cardizem Inj/NS Inj) 125 ml @ 0 mls/hr TITRATE IV 12/21/16 11:30 12/21/16 12:12 (Eliquis) 5 mg Q12H PO 12/21/16 16:00 12/22/16 05:39 (Lopressor) 25 mg Q12HR PO 12/22/16 21:00 (Cordarone) 400 mg Q12HR PO 12/22/16 10:15 12/22/16 11:05 (Reglan Inj) 10 mg Q8HR IV PUSH 12/22/16 14:00 Assessment and Plan Problem List: (1) Afib Status: Acute Plan: Back into sinus rhythm. On PO amio Continue with current management (2) HTN (hypertension) Status: Chronic Plan: SBP 126 (3) CAD (coronary artery disease) Status: Acute Plan: SP CABG. Doing better Clean surgical wound No SOB Problem Qualifiers (1) Afib: Qualified Code: I48.0 - Paroxysmal atrial fibrillation (2) HTN (hypertension): Qualified Code: I10 - Essential hypertension Phill Leon MD Dec 22, 2016 13:54
--- NOTE | 2016-12-22 14:30 | HHI.PR ---
Subjective Remarks Follow-up A. fib. Patient denies palpitations and shortness of breath. No bleeding. Discussed with RN Objective Vitals Vital Signs Date Time Temp Pulse Resp B/P Pulse Ox O2 Delivery O2 Flow Rate FiO2 12/22/16 13:00 74 12/22/16 12:00 69 12/22/16 11:00 98.0 68 20 126/68 95 12/22/16 11:00 68 12/22/16 11:00 94 Room Air 12/22/16 10:00 79 12/22/16 09:15 99.1 75 18 114/61 98 Arterial Line 12/22/16 09:15 93 Nasal Cannula 2.00 12/22/16 09:00 90 12/22/16 08:00 79 12/22/16 07:55 99 Nasal Cannula 3.00 12/22/16 07:55 99 Nasal Cannula 2.00 12/22/16 07:00 79 12/22/16 04:00 98 2.00 12/22/16 04:00 67 12/22/16 03:00 68 12/22/16 02:00 69 12/22/16 01:00 67 12/22/16 01:00 109/56 12/22/16 01:00 97 Nasal Cannula 2.00 12/22/16 00:38 98.3 73 18 121/68 96 12/22/16 00:00 66 12/21/16 23:08 114 18 117/75 97 12/21/16 23:00 121 12/21/16 22:00 141 12/21/16 22:00 118/82 12/21/16 22:00 96 Nasal Cannula 2.00 12/21/16 21:00 133 12/21/16 20:00 98.4 77 18 134/65 95 12/21/16 20:00 96 Nasal Cannula 2.00 12/21/16 20:00 139 12/21/16 18:00 136 12/21/16 17:00 125 12/21/16 15:50 81 12/21/16 15:00 94 Nasal Cannula 2.00 12/21/16 15:00 132 12/21/16 15:00 98.9 143 18 102/65 94 I/O 12/21/16 12/21/16 12/21/16 12/22/16 12/22/16 12/22/16 07:00 15:00 23:00 07:00 15:00 23:00 Intake Total 530 ml 240 ml 340 ml Output Total 1470 ml 700 ml 550 ml Balance -940 ml -460 ml -210 ml Intake Oral 480 ml 240 ml 120 ml IV Total 50 ml 220 ml Output Urine Total 1400 ml 700 ml 550 ml Chest Tube Drainage Total 70 ml # Bowel Movements 0 0 Result Diagram: 12/22/1652612/22/16526 Objective Remarks GENERAL: Very pleasant middle-aged white male in no acute distress. HEENT: PERRLA, EOMI. No scleral icterus or conjunctival pallor. No lid lag or facial droop. CARDIOVASCULAR: Controlled ventricular response. Sternal dressings in place. RESPIRATORY: No obvious rhonchi or wheezing. Clear to auscultation. Breath sounds equal bilaterally. GASTROINTESTINAL: Abdomen soft, non-tender, nondistended. BS normal. MUSCULOSKELETAL: Extremities without clubbing, cyanosis, or edema. No obvious deformities. NEUROLOGICAL: Awake, alert and oriented x4. No focal neurologic deficits. Moving both upper and lower extremities spontaneously. Procedures IDENTIFICATION AND RECORDS COMMANDER 12/17/16 Severe three vessel coronary artery disease CABG A/P Problem List: (1) NSTEMI (non-ST elevated myocardial infarction) ICD Code: I21.4 Status: Acute (2) Renal insufficiency ICD Code: N28.9 Status: Acute (3) Hypomagnesemia ICD Code: E83.42 Status: Acute (4) Leukocytosis ICD Code: D72.829 Status: Acute (5) HTN (hypertension) ICD Code: I10 Status: Chronic (6) DM (diabetes mellitus) ICD Code: E11.9 Status: Chronic Assessment and Plan This is a 71-year-old male presenting with chest pain NSTEMI status post CABG: Doing okay continue postoperative care. Continue aspirin, metoprolol and statin. Diabetes-hemoglobin A1c 6.2, monitor. Hyperglycemic continue Metformin and Levemir as well as sliding scale insulin. Adjust medications per glycemic trends Atrial fibrillation with CVR. Dc Cardizem drip and continue by mouth amiodarone , metoprolol and OAC. [id number] score of 2 pt agrees with anticoagulation aware of hcx of ocular hge Acute kidney injury. Stable. Avoid nephrotoxins. Repeat BMP and magnesium in the morning Hypertension-currently controlled, hold lisinopril. Continue metoprolol. Leukocytosis-likely stress-induced, chest x-ray personally reviewed unremarkable. Urinalysis negative. Stable Hypothyroidism-TSH 6.2, free T3 and free T4 normal. DVT prophylaxis: OAC Problem Qualifiers (1) HTN (hypertension): Qualified Code: I10 - Essential hypertension (2) DM (diabetes mellitus): Jonny Montgomery MD Dec 22, 2016 14:30
[2016-12-22] MEDS: SENNOSIDES 8.6 MG TAB PO SCH (21:00)
[2016-12-22] MEDS: ATORVASTATIN 40 MG TAB PO SCH (21:47)
[2016-12-23] VITALS (28 sets, daily range): BP systolic 125–157; BP diastolic 69–85; PULSE 68–130; RESP 14–20; TEMP 97.9–98.7; O2SAT 93–99
[2016-12-23] MEDS: oxyCODONE/ACETAMINOPHEN 5 MG/325 MG TAB PO PRN ×4 (01:33→20:40)
[2016-12-23 04:12] LABS: AUTOMATED NEUTROPHIL # 11.1 TH/MM3 (1.8-7.7); BASOPHIL # 0.1 TH/MM3 (0-0.2); BASOPHIL % 0.5 % (0.0-2.0); EOSINOPHIL # 0.1 TH/MM3 (0-0.4); EOSINOPHIL % 0.4 % (0.0-4.0); HEMATOCRIT 28.8 % (39.0-51.0); LYMPH % 11.5 % (9.0-44.0); LYMPHOCYTE # 1.7 TH/MM3 (1.0-4.8); MEAN CELL VOLUME 89.9 FL (80.0-100.0); MEAN CORPUSCULAR HEMOGLOBIN 29.7 PG (27.0-34.0); MONO % 11.8 % (0.0-8.0); NEUT % 75.8 % (16.0-70.0); PLATELET COUNT 227 TH/MM3 (150-450); RED BLOOD COUNT 3.21 MIL/MM3 (4.50-5.90); RED CELL DISTRIBUTION WIDTH 15.7 % (11.6-17.2); WHITE BLOOD COUNT 14.6 TH/MM3 (4.0-11.0)
[2016-12-23 04:21] LABS: HEMO FLAGS AUTO DIFF
[2016-12-23 04:38] LABS: BICARBONATE 28.5 MEQ/L (21.0-32.0); MAGNESIUM 2.5 MG/DL (1.5-2.5); POTASSIUM 4.6 MEQ/L (3.5-5.1)
[2016-12-23] MEDS: PANTOPRAZOLE SOD 40 MG DELAYED RELEASE TAB PO SCH (05:39)
[2016-12-23] MEDS: APIXABAN 5 MG TABLET PO SCH ×2 (05:39→16:30)
[2016-12-23] MEDS: METOCLOPRAMIDE HCL 10 MG/2 ML VIAL IV PUSH SCH (05:39)
[2016-12-23 06:22] LABS: PLATELET ESTIMATE SMEAR NORMAL (NORMAL); PLATELET MORPHOLOGY NORMAL (NORMAL); POLYCHROMASIA 2.3 % (0.0-1.9); SCAN/DIFF AUTO DIFF CONFIRMED
[2016-12-23] MEDS: INSULIN ASPART SUPPLEMENTAL SCALE SQ SCH ×4 (06:41→20:39)
[2016-12-23] MEDS: NYSTAT/DIPHENHY/LIDO MOUTHWASH (Adult) 120ML SWISH-SWAL SCH ×4 (08:19→20:41)
[2016-12-23] MEDS: POLYETHYLENE GLYCOL 17 GM PKG PO SCH (08:19)
[2016-12-23] MEDS: SERTRALINE HCL 50 MG TAB PO SCH (08:20)
[2016-12-23] MEDS: AMIODARONE 200 MG TAB PO SCH ×2 (08:20→20:40)
[2016-12-23] MEDS: DOCUSATE SODIUM 100 MG CAP PO SCH ×2 (08:20→20:40)
[2016-12-23] MEDS: ASPIRIN 81 MG CHEW TAB PO SCH (08:20)
[2016-12-23] MEDS: METOPROLOL TARTRATE 25 MG TAB PO SCH (08:20)
[2016-12-23] MEDS: MULTIVITAMINS/MINERALS THERAPEUTIC TAB PO SCH (08:20)
[2016-12-23] MEDS: SODIUM CHLORIDE 0.9% FLUSH 5 ML FLUSH IV FLUSH SCH ×2 (08:21→20:41)
[2016-12-23] MEDS: INSULIN DETEMIR 100 UNITS/ML VIAL SQ SCH ×2 (08:21→20:39)
--- NOTE | 2016-12-23 09:39 | HHI.PR ---
Subjective Remarks Follow-up diabetes mellitus. Improving hyperglycemia. Patient has no new complaints. Aware metformin has to be discontinued secondary to acute kidney injury. Discussed with RN Objective Vitals Vital Signs Date Time Temp Pulse Resp B/P Pulse Ox O2 Delivery O2 Flow Rate FiO2 12/23/16 09:04 93 Room Air 12/23/16 09:00 85 12/23/16 08:00 89 12/23/16 07:30 98.7 83 18 145/82 97 12/23/16 07:00 75 12/23/16 05:00 98.0 78 14 135/85 97 12/23/16 04:00 79 12/23/16 03:00 94 Nasal Cannula 12/23/16 03:00 72 12/23/16 02:00 72 12/23/16 01:00 76 12/23/16 00:00 72 12/23/16 00:00 98.1 79 18 137/81 96 12/22/16 23:00 96 2.00 12/22/16 23:00 74 12/22/16 21:46 97 CPAP 21 12/22/16 21:00 99.2 84 18 137/67 97 12/22/16 21:00 83 12/22/16 20:00 85 12/22/16 20:00 94 Room Air 12/22/16 19:00 85 12/22/16 18:00 91 12/22/16 17:00 78 12/22/16 16:35 98.7 87 20 138/72 92 12/22/16 16:00 83 12/22/16 15:00 94 Room Air 12/22/16 15:00 79 12/22/16 14:00 84 12/22/16 13:00 74 12/22/16 12:00 69 12/22/16 11:00 98.0 68 20 126/68 95 12/22/16 11:00 68 12/22/16 11:00 94 Room Air 12/22/16 10:00 79 I/O 12/22/16 12/22/16 12/22/16 12/23/16 12/23/16 12/23/16 07:00 15:00 23:00 07:00 15:00 23:00 Intake Total 340 ml 1580 ml Output Total 550 ml 925 ml Balance -210 ml 655 ml Intake Oral 120 ml 1580 ml IV Total 220 ml Output Urine Total 550 ml 925 ml # Bowel Movements 0 4 Result Diagram: 12/23/16 0342 12/23/16 0342 Objective Remarks GENERAL: Very pleasant middle-aged white male in no acute distress. HEENT: PERRLA, EOMI. No scleral icterus or conjunctival pallor. No lid lag or facial droop. CARDIOVASCULAR: Controlled ventricular response. Sternal dressings in place. RESPIRATORY: No obvious rhonchi or wheezing. Clear to auscultation. Breath sounds equal bilaterally. GASTROINTESTINAL: Abdomen soft, non-tender, nondistended. BS normal. MUSCULOSKELETAL: Extremities without clubbing, cyanosis, or edema. No obvious deformities. NEUROLOGICAL: Awake, alert and oriented x4. No focal neurologic deficits. Moving both upper and lower extremities spontaneously. Nonfocal Procedures CAR CHASER 12/17/16 Severe three vessel coronary artery disease CABG A/P Problem List: (1) NSTEMI (non-ST elevated myocardial infarction) ICD Code: I21.4 Status: Acute (2) Renal insufficiency ICD Code: N28.9 Status: Acute (3) Hypomagnesemia ICD Code: E83.42 Status: Acute (4) Leukocytosis ICD Code: D72.829 Status: Acute (5) HTN (hypertension) ICD Code: I10 Status: Chronic (6) DM (diabetes mellitus) ICD Code: E11.9 Status: Chronic Assessment and Plan This is a 71-year-old male presenting with chest pain NSTEMI status post CABG: Doing okay continue postoperative care. Continue aspirin, metoprolol and statin. Diabetes-hemoglobin A1c 6.2, monitor. Hyperglycemic continue Levemir as well as sliding scale insulin. Adjust medications per glycemic trends Atrial fibrillation with CVR. Dc Cardizem drip and continue by mouth amiodarone , metoprolol and OAC. [id number] score of 2 pt agrees with anticoagulation aware of hcx of ocular hge Acute kidney injury. Stable. Avoid nephrotoxins. Hypertension-currently controlled, hold lisinopril. Continue metoprolol. Leukocytosis-likely stress-induced, chest x-ray personally reviewed unremarkable. Urinalysis negative. Improving Hypothyroidism-TSH 6.2, free T3 and free T4 normal. DVT prophylaxis: OAC Problem Qualifiers (1) HTN (hypertension): Qualified Code: I10 - Essential hypertension (2) DM (diabetes mellitus): Jonny Montgomery MD Dec 23, 2016 09:39
[2016-12-23] MEDS: PREGABALIN 75 MG CAP PO SCH ×2 (09:42→20:40)
[2016-12-23] MEDS: metFORMIN HCL 500 MG TAB PO SCH ×2 (10:30→18:00)
--- NOTE | 2016-12-23 10:30 | PD.CAR.PN ---
CVT Progress Note CVT: POD #: 4 Subjective/Hospital Course: 63/ male admitted with NSTEMI, , underwent Cardiac cath by Dr Acevedo, multi vessel disease with EF 60% PMH: HTN, HLP, depression , DM , ischemic optic neuropathy ( was seen by ophthalmology , Dr Verito Solorzano, ( control cardiac risk factors ) incidental finding of elevated TSH 6.20 normal T3 T4 ( subclinical hypothyroidism) surgery: 12/19 urgent CABG x 2, QUICK to LAD SVG to OM 1, EVH extubated after surgery, crystalloid 2000cc, 700 urine output 12/20 went into afib RVR last pm, given bolus of IV amiodarone , converted , then went back into afib RVR this am required additional bolus and IV gtt converted last in am , K+ and mag replaced PLT 84, will monitor transfer to stepdown unit 12/21 pt went back into afib RVR amiodarone gtt stopped last pm additional bolus given also mag replacement on BB low grade temp, and leukocytosis aggressive pulm toileting , dc cvc line ambulate and dc chest tube 12/22/16 In sinus rhythm. c/o some indigestion 12/23/16 Improving. NSR Objective: Vital Signs Date Time Temp Pulse Resp B/P Pulse Ox O2 Delivery O2 Flow Rate FiO2 12/23/16 09:04 93 Room Air 12/23/16 09:00 85 12/23/16 08:00 89 12/23/16 07:30 98.7 83 18 145/82 97 12/23/16 07:00 75 12/23/16 05:00 98.0 78 14 135/85 97 12/23/16 04:00 79 12/23/16 03:00 94 Nasal Cannula 12/23/16 03:00 72 12/23/16 02:00 72 12/23/16 01:00 76 12/23/16 00:00 72 12/23/16 00:00 98.1 79 18 137/81 96 12/22/16 23:00 96 2.00 12/22/16 23:00 74 12/22/16 21:46 97 CPAP 21 12/22/16 21:00 99.2 84 18 137/67 97 12/22/16 21:00 83 12/22/16 20:00 85 12/22/16 20:00 94 Room Air 12/22/16 19:00 85 12/22/16 18:00 91 12/22/16 17:00 78 12/22/16 16:35 98.7 87 20 138/72 92 12/22/16 16:00 83 12/22/16 15:00 94 Room Air 12/22/16 15:00 79 12/22/16 14:00 84 12/22/16 13:00 74 12/22/16 12:00 69 12/22/16 11:00 98.0 68 20 126/68 95 12/22/16 11:00 68 12/22/16 11:00 94 Room Air Labs: Laboratory Tests Test 12/23/16 03:42 White Blood Count 14.6 TH/MM3 (4.0-11.0) Red Blood Count 3.21 MIL/MM3 (4.50-5.90) Hemoglobin 9.5 GM/DL (13.0-17.0) Hematocrit 28.8 % (39.0-51.0) Mean Corpuscular Volume 89.9 FL (80.0-100.0) Mean Corpuscular Hemoglobin 29.7 PG (27.0-34.0) Mean Corpuscular Hemoglobin 33.0 % Concent (32.0-36.0) Red Cell Distribution Width 15.7 % (11.6-17.2) Platelet Count 227 TH/MM3 (150-450) Mean Platelet Volume 7.4 FL (7.0-11.0) Neutrophils (%) (Auto) 75.8 % (16.0-70.0) Lymphocytes (%) (Auto) 11.5 % (9.0-44.0) Monocytes (%) (Auto) 11.8 % (0.0-8.0) Eosinophils (%) (Auto) 0.4 % (0.0-4.0) Basophils (%) (Auto) 0.5 % (0.0-2.0) Neutrophils # (Auto) 11.1 TH/MM3 (1.8-7.7) Lymphocytes # (Auto) 1.7 TH/MM3 (1.0-4.8) Monocytes # (Auto) 1.7 TH/MM3 (0-0.9) Eosinophils # (Auto) 0.1 TH/MM3 (0-0.4) Basophils # (Auto) 0.1 TH/MM3 (0-0.2) CBC Comment AUTO DIFF Differential Comment AUTO DIFF CONFIRMED Platelet Estimate NORMAL (NORMAL) Platelet Morphology Comment NORMAL (NORMAL) Polychromasia 2.3 % (0.0-1.9) Sodium Level 132 MEQ/L (136-145) Potassium Level 4.6 MEQ/L (3.5-5.1) Chloride Level 96 MEQ/L (98-107) Carbon Dioxide Level 28.5 MEQ/L (21.0-32.0) Anion Gap 8 MEQ/L (5-15) Blood Urea Nitrogen 35 MG/DL (7-18) Creatinine 1.35 MG/DL (0.60-1.30) Estimat Glomerular Filtration 52 ML/MIN (>89) Rate Random Glucose 131 MG/DL (74-106) Calcium Level 8.7 MG/DL (8.5-10.1) Magnesium Level 2.5 MG/DL (1.5-2.5) Result Diagram: 12/23/1634112/23/16341 Cardiovascular: RRR Telemetry: NSR Pulmonary: CTA GI/: NABS, NT Incision: dry and intact Plan: Encourage ambulation Stim BM Anticipate d/c tomorrow Restart PO diabetic meds Increase beta edgardo dose (1) S/P CABG x 2 Plan: Afib with RVR Cont Cardizem drip Start Amio drip Start OAC (2) NSTEMI (non-ST elevated myocardial infarction) (3) Optic nerve hemorrhage (4) Afib (5) DM (diabetes mellitus) (6) HTN (hypertension) Problem Qualifiers (1) Optic nerve hemorrhage: Qualified Code: 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
[2016-12-23] MEDS: ASCORBIC ACID 500 MG TAB PO SCH (11:30)
[2016-12-23] MEDS: glipiZIDE 10 MG TAB PO SCH (11:31)
[2016-12-23] MEDS: METOCLOPRAMIDE HCL 10 MG TAB PO SCH ×2 (12:00→16:30)
--- NOTE | 2016-12-23 14:13 | HHI.PR ---
Subjective Remarks Doing better. Objective Vital Signs Date Time Temp Pulse Resp B/P Pulse Ox O2 Delivery O2 Flow Rate FiO2 12/23/16 13:31 125 12/23/16 13:27 130 12/23/16 13:00 71 12/23/16 12:00 75 12/23/16 11:00 69 12/23/16 11:00 98.0 69 20 134/79 93 12/23/16 11:00 93 Room Air 12/23/16 10:00 68 12/23/16 09:04 93 Room Air 12/23/16 09:00 85 12/23/16 08:00 89 12/23/16 07:30 98.7 83 18 145/82 97 12/23/16 07:00 75 12/23/16 05:00 98.0 78 14 135/85 97 12/23/16 04:00 79 12/23/16 03:00 94 Nasal Cannula 12/23/16 03:00 72 12/23/16 02:00 72 12/23/16 01:00 76 12/23/16 00:00 72 12/23/16 00:00 98.1 79 18 137/81 96 12/22/16 23:00 96 2.00 12/22/16 23:00 74 12/22/16 21:46 97 CPAP 21 12/22/16 21:00 99.2 84 18 137/67 97 12/22/16 21:00 83 12/22/16 20:00 85 12/22/16 20:00 94 Room Air 12/22/16 19:00 85 12/22/16 18:00 91 12/22/16 17:00 78 12/22/16 16:35 98.7 87 20 138/72 92 12/22/16 16:00 83 12/22/16 15:00 94 Room Air 12/22/16 15:00 79 I/O 12/22/16 12/22/16 12/22/16 12/23/16 12/23/16 12/23/16 07:00 15:00 23:00 07:00 15:00 23:00 Intake Total 340 ml 1580 ml Output Total 550 ml 925 ml Balance -210 ml 655 ml Intake Oral 120 ml 1580 ml IV Total 220 ml Output Urine Total 550 ml 925 ml # Bowel Movements 0 4 Result Diagram: 12/23/16 0342 12/23/16 0342 Imaging Alert, fully oriented, ambulating Lungs: ventilated Heart: S1, S2 regular Abdomen: soft, no mass, obese Ext: no edema Clean sternotomy wound Last Impressions Chest X-Ray 12/22/16 0600 Signed Impressions: Service Date/Time: Thursday, December 22, 2016 03:26 - CONCLUSION: 1. Cardiomegaly with bibasilar atelectasis. 2. Small left effusion new in comparison with prior study Maxwell Santos MD Lower Extremity Ultrasound 12/17/16 0000 Signed Impressions: Service Date/Time: Saturday, December 17, 2016 18:38 - CONCLUSION: Venous mapping as described above. Jarvis Michael MD Current Medications Medications (Trade) Dose Ordered Sig/Katina Route Start Time Stop Time Status Last Admin (Dulcolax Supp) 10 mg DAILY PRN IN 12/16/16 01:15 (Tylenol) 650 mg Q6H PRN PO 12/16/16 01:15 (Lipitor) 40 mg HS PO 12/16/16 21:00 12/22/16 21:47 (Lyrica) 150 mg BID PO 12/16/16 09:00 12/23/16 09:42 (Zoloft) 50 mg DAILY PO 12/16/16 09:00 12/23/16 08:20 (Pill Splitter) 1 ea UNSCH PRN OTHER 12/16/16 01:30 (Chloraseptic Keavy) 2 spray Q2H PRN OROPHARYNG 12/18/16 16:00 12/18/16 20:56 (Magic Mouthwash Adult Liq) 10 ml QID SWISH-SWAL 12/18/16 18:00 12/23/16 12:28 (NS Flush) 2 ml BID IV FLUSH 12/19/16 21:00 12/23/16 08:21 (NS Flush) 2 ml UNSCH PRN IV FLUSH 12/19/16 12:00 (Aspirin Chew) 81 mg DAILY PO 12/20/16 09:00 12/23/16 08:20 (Protonix) 40 mg DAILY@06 PO 12/20/16 06:00 12/23/16 05:39 (Tylenol) 650 mg Q4H PRN PO 12/19/16 12:00 (Percocet 5-325 Mg) 1 tab Q3H PRN PO 12/19/16 12:00 12/23/16 12:27 (Zofran Inj) 4 mg Q6H PRN IV PUSH 12/19/16 12:00 12/20/16 14:28 Metoprolol Tartrate 2.5 mg 2.5 mg Q1H PRN IV PUSH 12/19/16 12:00 Magnesium Sulfate 2 gm/Sodium Chloride 104 ml @ 100 mls/hr UNSCH PRN IV 12/19/16 12:00 12/21/16 06:20 (Magnesium Sulfate Inj/NS Inj) 104 ml @ 50 mls/hr UNSCH PRN IV 12/19/16 12:00 12/20/16 08:05 (Colace) 100 mg BID PO 12/20/16 11:15 12/23/16 08:20 (Theragran M Tab) 1 tab DAILY PO 12/21/16 09:00 12/23/16 08:20 (Miralax) 17 gm DAILY PO 12/21/16 09:00 12/23/16 08:19 (Senokot) 8.6 mg HS PO 12/20/16 21:00 12/21/16 22:56 (Fleets Enema (Adult)) 133 ml UNSCH PRN RECTAL 12/20/16 11:15 (D50w (Vial) Inj) 25 ml UNSCH PRN IV 12/20/16 11:15 (Glucagon Inj) 1 mg UNSCH PRN OTHER 12/20/16 11:15 (NovoLOG SUPPLEMENTAL SCALE) 1 ACHS SQ 12/21/16 16:00 12/23/16 11:12 (Eliquis) 5 mg Q12H PO 12/21/16 16:00 12/23/16 05:39 (Cordarone) 400 mg Q12HR PO 12/22/16 10:15 12/23/16 08:20 (Levemir Inj) 18 units Q12HR SQ 12/22/16 21:00 12/23/16 08:21 (Lopressor) 50 mg Q12HR PO 12/23/16 21:00 (Vitamin C) 1,000 mg DAILY PO 12/23/16 10:30 12/23/16 11:30 (Vitamin D3) 1,000 units DAILY PO 12/24/16 09:00 (Glucotrol) 10 mg DAILY PO 12/23/16 10:30 12/23/16 11:31 (Glucophage) 1,000 mg BIDPC PO 12/23/16 10:30 (Reglan) 10 mg TIDAC PO 12/23/16 12:00 Assessment and Plan Problem List: (1) Afib Status: Acute Plan: Short burst this morning but back into sinus rhythm Will need anticoagulation upon discharge Continue with current meds I will be available on a PRN basis (2) HTN (hypertension) Status: Chronic Plan: SBP 126 (3) CAD (coronary artery disease) Status: Acute Plan: SP CABG. Doing better Clean surgical wound No SOB Problem Qualifiers (1) Afib: Qualified Code: I48.0 - Paroxysmal atrial fibrillation (2) HTN (hypertension): Qualified Code: I10 - Essential hypertension Phill Leon MD Dec 23, 2016 14:13
[2016-12-23] MEDS: SENNOSIDES 8.6 MG TAB PO SCH (20:39)
[2016-12-23] MEDS: ATORVASTATIN 40 MG TAB PO SCH (20:40)
[2016-12-23] MEDS: METOPROLOL TARTRATE 50 MG TAB PO SCH (20:45)
[2016-12-24] VITALS (17 sets, daily range): BP systolic 137–159; BP diastolic 70–75; PULSE 69–120; RESP 18–24; TEMP 98.6–99.1; O2SAT 94–96
[2016-12-24] MEDS: oxyCODONE/ACETAMINOPHEN 5 MG/325 MG TAB PO PRN ×2 (02:26→11:37)
[2016-12-24] MEDS: APIXABAN 5 MG TABLET PO SCH (03:04)
[2016-12-24] MEDS: INSULIN ASPART SUPPLEMENTAL SCALE SQ SCH ×2 (06:36→11:34)
[2016-12-24] MEDS: PANTOPRAZOLE SOD 40 MG DELAYED RELEASE TAB PO SCH (06:36)
[2016-12-24] MEDS ORDERED: OXYC1TAB63 PO (08:34)
[2016-12-24] MEDS ORDERED: LISI10TA3 PO (08:34)
[2016-12-24] MEDS ORDERED: METO-309 PO (08:34)
[2016-12-24] MEDS ORDERED: APIX5TAB PO (08:34)
[2016-12-24] MEDS ORDERED: DOCU1CAP39 PO (08:34)
[2016-12-24] MEDS ORDERED: AMIO200T PO (08:34)
--- NOTE | 2016-12-24 08:38 | HHI.DS ---
Discharge Summary Admission Date Dec 16, 2016 at 00:49 Discharge Date: Dec 24, 2016 Admitting Diagnosis NSTEMI CAD (1) NSTEMI (non-ST elevated myocardial infarction) Diagnosis: Principal (2) Renal insufficiency Diagnosis: Secondary (3) Hypomagnesemia Diagnosis: Secondary (4) Leukocytosis Diagnosis: Secondary (5) HTN (hypertension) Diagnosis: Secondary (6) DM (diabetes mellitus) Diagnosis: Secondary (7) CAD (coronary artery disease) Diagnosis: Principal Procedures Left heart cath CABG Brief History Subjective/Hospital Course: 63/ male admitted with NSTEMI, , underwent Cardiac cath by Dr Acevedo, multi vessel disease with EF 60% PMH: HTN, HLP, depression , DM , ischemic optic neuropathy ( was seen by ophthalmology , Dr Verito Solorzano, ( control cardiac risk factors ) incidental finding of elevated TSH 6.20 normal T3 T4 ( subclinical hypothyroidism) CBC/BMP: 12/23/16 0342 12/23/16 0342 Significant Findings Laboratory Tests Test 12/22/16 12/23/16 05:27 03:42 White Blood Count 16.8 TH/MM3 14.6 TH/MM3 (4.0-11.0) (4.0-11.0) Red Blood Count 3.21 MIL/MM3 3.21 MIL/MM3 (4.50-5.90) (4.50-5.90) Hemoglobin 9.5 GM/DL 9.5 GM/DL (13.0-17.0) (13.0-17.0) Hematocrit 28.9 % 28.8 % (39.0-51.0) (39.0-51.0) Neutrophils (%) (Auto) 77.5 % 75.8 % (16.0-70.0) (16.0-70.0) Monocytes (%) (Auto) 11.2 % 11.8 % (0.0-8.0) (0.0-8.0) Neutrophils # (Auto) 13.0 TH/MM3 11.1 TH/MM3 (1.8-7.7) (1.8-7.7) Monocytes # (Auto) 1.9 TH/MM3 1.7 TH/MM3 (0-0.9) (0-0.9) Sodium Level 129 MEQ/L 132 MEQ/L (136-145) (136-145) Potassium Level 5.7 MEQ/L (3.5-5.1) Chloride Level 96 MEQ/L 96 MEQ/L (98-107) (98-107) Blood Urea Nitrogen 32 MG/DL (7-18) 35 MG/DL (7-18) Creatinine 1.33 MG/DL 1.35 MG/DL (0.60-1.30) (0.60-1.30) Estimat Glomerular Filtration 53 ML/MIN (>89) 52 ML/MIN (>89) Rate Random Glucose 190 MG/DL 131 MG/DL (74-106) (74-106) Polychromasia 2.3 % (0.0-1.9) Imaging Last Impressions Chest X-Ray 12/22/16 0600 Signed Impressions: Service Date/Time: Thursday, December 22, 2016 03:26 - CONCLUSION: 1. Cardiomegaly with bibasilar atelectasis. 2. Small left effusion new in comparison with prior study Maxwell Santos MD Lower Extremity Ultrasound 12/17/16 0000 Signed Impressions: Service Date/Time: Saturday, December 17, 2016 18:38 - CONCLUSION: Venous mapping as described above. Jarvis Michael MD PE at Discharge chest - CTA COR - RRR ABD - soft, NT, NABS wound - dry and intact Hospital Course surgery: 12/19 urgent CABG x 2, QUICK to LAD SVG to OM 1, EVH extubated after surgery, crystalloid 2000cc, 700 urine output 12/20 went into afib RVR last pm, given bolus of IV amiodarone , converted , then went back into afib RVR this am required additional bolus and IV gtt converted last in am , K+ and mag replaced PLT 84, will monitor transfer to stepdown unit 12/21 pt went back into afib RVR amiodarone gtt stopped last pm additional bolus given also mag replacement on BB low grade temp, and leukocytosis aggressive pulm toileting , dc cvc line ambulate and dc chest tube 12/22/16 In sinus rhythm. c/o some indigestion 12/23/16 Improving. NSR Pt Condition on Discharge: Good Discharge Disposition: Disch w/ Home Health Serv Discharge Instructions DIET: Follow Instructions for: Heart Healthy Diet, Diabetic Diet Activities you can perform: Weight Bearing as Mady, Shower Only-No Bath Follow up Referrals: Cardiology with Jose Gale MD PCP Follow-up Surgical with Liana Granados MD New Orders: BASIC METABOLIC PROF - 2 Weeks CBC NO DIFF - 2 Weeks X-RAY CHEST PA & LAT - 2 Weeks New Medications: Amiodarone (Amiodarone) 200 Mg Tab 200 MG PO Q12HR Regulate Heart Beat #28 Ref 0 TAB Apixaban (Eliquis) 5 Mg Tab 5 MG PO Q12H Blood Clot Prevention #60 Ref 0 TAB Docusate Sodium (Dok) 100 Mg Cap 100 MG PO BID Constipation #28 Ref 0 CAP Lisinopril (Lisinopril) 10 Mg Tab 10 MG PO DAILY Blood Pressure Management #30 Ref 3 TAB Metoprolol Tartrate (Lopressor) 50 Mg Tab 50 MG PO Q12HR Blood Pressure Management #60 Ref 3 TAB Oxycodone-Acetaminophen (Oxycodone-Acetaminophen) 5-325 mg Tab 1 TAB PO Q3H PRN PAIN SCALE 6-10 #20 Ref 0 TAB Continued Medications: Ascorbic Acid (Vitamin C) 1,000 Mg Tab 1000 MG PO Nutritional Supplement Ref 0 TAB Aspirin (Aspirin) 81 Mg Chew 81 MG CHEW DAILY Ref 0 TAB Atorvastatin (Atorvastatin) 40 Mg Tab 40 MG PO HS Cholesterol Management #30 Ref 0 TAB Calcium Carbonate (Calcium) 600 Mg Tab Cholecalciferol (Vitamin D) 1,000 Unit Tab 1000 UNITS PO DAILY Nutritional Supplement #1 Ref [address] (Nexium) 40 Mg Capdr 40 MG PO BID Ref 0 CAP Fexofenadine (Melissa Allergy) 180 Mg Tab 180 MG PO DAILY Allergy Management #30 Ref 0 TAB Glipizide ER (Glipizide XL) 10 Mg Carline 10 MG PO DAILY Take with breakfast or first main meal of the day Blood Sugar Management #30 Ref 0 TAB Insulin Glargine Inj (Lantus Solostar Pen Inj) 300 Unit/3 Ml Pen 140 UNITS SQ Blood Sugar Management Ref 0 PEN Melatonin (Melatonin Cr) 10 Mg Tab Metformin (Metformin) 1,000 Mg Tab 1000 MG PO BIDPC With meals Blood Sugar Management #60 Ref 0 TAB Metoclopramide (Metoclopramide) 10 Mg Tab 10 MG PO TIDAC Ref 0 TAB Multiple Vitamins W/ Minerals (Multivitamin Adult) 1 Chw Chw 1 TAB PO DAILY Pregabalin (Lyrica) 150 Mg Cap 150 MG PO BID #60 Ref 0 CAP Sertraline (Sertraline) 50 Mg Tab 50 MG PO DAILY #30 Ref 0 TAB Vitamin E (Alph-E) 400 Unit Cap Discontinued Medications: Lisinopril (Lisinopril) 30 Mg Tab 30 MG PO DAILY Blood Pressure Management #30 Ref 0 TAB Liana Granados MD Dec 24, 2016 08:38
[2016-12-24] MEDS: METOCLOPRAMIDE HCL 10 MG TAB PO SCH ×2 (08:43→11:37)
[2016-12-24] MEDS: PREGABALIN 75 MG CAP PO SCH (08:43)
[2016-12-24] MEDS: MULTIVITAMINS/MINERALS THERAPEUTIC TAB PO SCH (08:43)
[2016-12-24] MEDS: DOCUSATE SODIUM 100 MG CAP PO SCH (08:43)
[2016-12-24] MEDS: ASPIRIN 81 MG CHEW TAB PO SCH (08:43)
[2016-12-24] MEDS: NYSTAT/DIPHENHY/LIDO MOUTHWASH (Adult) 120ML SWISH-SWAL SCH ×2 (08:43→13:00)
[2016-12-24] MEDS: ASCORBIC ACID 500 MG TAB PO SCH (08:44)
[2016-12-24] MEDS: AMIODARONE 200 MG TAB PO SCH (08:44)
[2016-12-24] MEDS: SERTRALINE HCL 50 MG TAB PO SCH (08:44)
[2016-12-24] MEDS: glipiZIDE 10 MG TAB PO SCH (08:44)
[2016-12-24] MEDS: metFORMIN HCL 500 MG TAB PO SCH (08:45)
[2016-12-24] MEDS: SODIUM CHLORIDE 0.9% FLUSH 5 ML FLUSH IV FLUSH SCH (08:46)
[2016-12-24] MEDS: INSULIN DETEMIR 100 UNITS/ML VIAL SQ SCH (08:47)
[2016-12-24] MEDS: METOPROLOL TARTRATE 50 MG TAB PO SCH (08:55)
[2016-12-24] MEDS ORDERED: CHOLECALCIFEROL (VIT D3) 1000 UNIT TAB PO SCH (09:00)
[2016-12-24] MEDS ORDERED: LISINOPRIL 10 MG TAB PO SCH (09:00)
--- NOTE | 2016-12-24 11:28 | HHI.PR ---
Subjective Remarks Follow-up diabetes mellitus. Hypoglycemic yesterday after receiving high-dose sliding scale coverage. Patient without hypoglycemic symptoms. Discussed with RN, patient cleared for discharge by cardiovascular surgery Objective Vitals Vital Signs Date Time Temp Pulse Resp B/P Pulse Ox O2 Delivery O2 Flow Rate FiO2 12/24/16 10:50 94 21 12/24/16 10:01 85 12/24/16 09:00 86 12/24/16 08:01 94 Room Air 12/24/16 08:01 87 12/24/16 08:01 98.8 82 18 159/72 94 12/24/16 07:00 74 12/24/16 06:03 70 12/24/16 05:03 73 12/24/16 04:07 71 12/24/16 03:41 69 12/24/16 03:14 96 Nasal Cannula 2.00 12/24/16 03:04 98.6 75 19 152/75 96 12/24/16 02:02 73 12/24/16 01:06 111 12/24/16 00:35 120 12/23/16 23:29 98.5 71 20 125/69 99 12/23/16 23:09 69 12/23/16 22:09 68 12/23/16 21:36 93 21 12/23/16 21:00 83 12/23/16 20:00 79 12/23/16 19:00 98.6 82 20 157/76 94 12/23/16 19:00 94 Room Air 12/23/16 19:00 82 12/23/16 18:00 80 12/23/16 17:00 72 12/23/16 16:00 74 12/23/16 15:00 75 12/23/16 15:00 97.9 80 20 143/76 93 12/23/16 15:00 93 Room Air 12/23/16 14:00 75 12/23/16 13:31 125 12/23/16 13:27 130 12/23/16 13:00 71 12/23/16 12:00 75 I/O 12/23/16 12/23/16 12/23/16 12/24/16 12/24/16 12/24/16 07:00 15:00 23:00 07:00 15:00 23:00 Intake Total 720 ml 960 ml Output Total 720 ml 1550 ml Balance 0 ml -590 ml Intake Oral 720 ml 960 ml Output Urine Total 720 ml 1550 ml # Bowel Movements 0 Result Diagram: 12/23/16 0342 12/23/16 0342 Imaging Last Impressions Chest X-Ray 12/22/16 0600 Signed Impressions: Service Date/Time: Thursday, December 22, 2016 03:26 - CONCLUSION: 1. Cardiomegaly with bibasilar atelectasis. 2. Small left effusion new in comparison with prior study Maxwell Santos MD Lower Extremity Ultrasound 12/17/16 0000 Signed Impressions: Service Date/Time: Saturday, December 17, 2016 18:38 - CONCLUSION: Venous mapping as described above. Jarvis Michael MD Objective Remarks GENERAL: Very pleasant middle-aged white male in no acute distress. HEENT: PERRLA, EOMI. No scleral icterus or conjunctival pallor. No lid lag or facial droop. CARDIOVASCULAR: Controlled ventricular response. Sternal dressings in place. RESPIRATORY: No obvious rhonchi or wheezing. Clear to auscultation. Breath sounds equal bilaterally. GASTROINTESTINAL: Abdomen soft, non-tender, nondistended. BS normal. MUSCULOSKELETAL: Extremities without clubbing, cyanosis, or edema. No obvious deformities. NEUROLOGICAL: Awake, alert and oriented x4. No focal neurologic deficits. Moving both upper and lower extremities spontaneously. Nonfocal Procedures [employer] 12/17/16 Severe three vessel coronary artery disease CABG A/P Problem List: (1) NSTEMI (non-ST elevated myocardial infarction) ICD Code: I21.4 Status: Acute (2) Renal insufficiency ICD Code: N28.9 Status: Acute (3) Hypomagnesemia ICD Code: E83.42 Status: Acute (4) Leukocytosis ICD Code: D72.829 Status: Acute (5) HTN (hypertension) ICD Code: I10 Status: Chronic (6) DM (diabetes mellitus) ICD Code: E11.9 Status: Chronic (7) CAD (coronary artery disease) ICD Code: I25.10 Status: Acute Assessment and Plan This is a 71-year-old male presenting with chest pain NSTEMI status post CABG: Doing okay continue postoperative care. Continue aspirin, metoprolol and statin. Diabetes-hemoglobin A1c 6.2, monitor. Hypoglycemia secondary to high-dose sliding scale coverage. Improved switch to low-dose sliding scale coverage and continue Levemir. Adjust medications per glycemic trends Atrial fibrillation with CVR. Dc Cardizem drip and continue by mouth amiodarone , metoprolol and OAC. [id number] score of 2 pt agrees with anticoagulation aware of hcx of ocular hge Acute kidney injury. Stable. Avoid nephrotoxins. Hypertension-currently controlled, hold lisinopril. Continue metoprolol. Leukocytosis-likely stress-induced, chest x-ray personally reviewed unremarkable. Urinalysis negative. Improving Hypothyroidism-TSH 6.2, free T3 and free T4 normal. DVT prophylaxis: OAC Discharge Planning Stable for discharge. Problem Qualifiers (1) HTN (hypertension): Qualified Code: I10 - Essential hypertension (2) DM (diabetes mellitus): Jonny Montgomery MD Dec 24, 2016 11:28
--- NOTE | 2017-01-08 09:44 | RSPPFT ---
DATE OF PROCEDURE: 12/18/16 COMMENTS: Spirometry is normal. The FEV1 is 122% of predicted. IMPRESSION: 1. Normal spirometry.
== END 2016-12-24 16:20 | disposition home health service (06) | DRG 234 ==
LOC: NEPC 21:25 → NEDA 12-16 00:49 → NEDH 12-16 04:19 → HIMW 12-16 06:25 → HCIN 12-17 23:43 → HCIS 12-19 09:27 → HCVR 12-19 12:30 → HCPC 12-20 12:57
PROVIDERS: ADMIT Internal Medicine; ATTEND Internal Medicine
PROC: 4A023N7 Measurement of Cardiac Sampling and Pressure, Left Heart, Percutaneous Approach (ICD-10-PCS; 2016-12-17)
PROC: B2111ZZ Fluoroscopy of Multiple Coronary Arteries using Low Osmolar Contrast (ICD-10-PCS; 2016-12-17)
PROC: B2151ZZ Fluoroscopy of Left Heart using Low Osmolar Contrast (ICD-10-PCS; 2016-12-17)
PROC: 02100Z9 Bypass Coronary Artery, One Artery from Left Internal Mammary, Open Approach (ICD-10-PCS; 2016-12-19)
PROC: 06BQ0ZZ Excision of Left Saphenous Vein, Open Approach (ICD-10-PCS; 2016-12-19)
PROC: 5A1221Z Performance of Cardiac Output, Continuous (ICD-10-PCS; 2016-12-19)
PROC: 021009W Bypass Coronary Artery, One Artery from Aorta with Autologous Venous Tissue, Open Approach (ICD-10-PCS; principal; 2016-12-19 07:13)
DX: I21.4 Non-ST elevation (NSTEMI) myocardial infarction (principal); N17.9 Acute kidney failure, unspecified; E11.65 Type 2 diabetes mellitus with hyperglycemia; E83.42 Hypomagnesemia; I48.0 Paroxysmal atrial fibrillation; I10 Essential (primary) hypertension; D72.829 Elevated white blood cell count, unspecified; E03.9 Hypothyroidism, unspecified; E66.9 Obesity, unspecified; N28.9 Disorder of kidney and ureter, unspecified; H47.013 Ischemic optic neuropathy, bilateral; E78.5 Hyperlipidemia, unspecified; I25.10 Atherosclerotic heart disease of native coronary artery without angina pectoris; K30 Functional dyspepsia; T38.0X5A Adverse effect of glucocorticoids and synthetic analogues, initial encounter; Z68.35 Body mass index [BMI] 35.0-35.9, adult; Z79.4 Long term (current) use of insulin; Z82.49 Family history of ischemic heart disease and other diseases of the circulatory system; Z96.653 Presence of artificial knee joint, bilateral
CPT/HCPCS: 36430; 71010; 71020; 76937; 80048; 80053; 80061; 81001; 82550; 82552; 82948; 83036; 83735; 83880; 84439; 84443; 84480; 84484; 85014; 85025; 85027; 85610; 85730; 86850; 86900; 86901; 86920; 87641; 93005; 93458; 93970; 93998; 94002; 94003; 94010; 94150; 94640; 94664; 94667; 94668; C1769; C1893; C9248; J0131; J0282; J0690; J1644; J1815; J1817; J2150; J2250; J2370; J2405; J2440; J2720; J2765; J2930; J3010; J3370; J3475; J3480; J7030; J7040; J7050; J7060; J7120; P9016; P9047; Q9967